=== PATIENT | male | born 1930 | race Caucasian/White ===

== ENCOUNTER 2018-12-13 14:05 | Inpatient (IN) | payer MEDICARE, BC ==
[2018-12-13 15:57] VITALS: BP 152/87
[2018-12-13] MEDS ORDERED: Maalox 30 mL Cup PO PRN (16:15)
[2018-12-13] MEDS ORDERED: Magnesium Hydroxide (MOM) 30 mL UDC PO PRN (16:15)
[2018-12-13] MEDS: Potassium Chloride 10 mEq ER Tab PO SCH (18:14)
[2018-12-13] MEDS ORDERED: PYRIDOXINE PO SCH (21:00)
[2018-12-13] MEDS ORDERED: MELATONIN PO SCH (21:00)
--- NOTE | 2018-12-14 01:57 | Psychiatric Evaluation ---
DATE OF SERVICE: 12/13/2018 JUSTIFICATION FOR HOSPITALIZATION: This is an 88-year-old male with a history of psychosis, on Seroquel admitted on a 5150 hold after worsening paranoia, thinking that his is trying to poison him. The patient has been agitated and stating "I do want to get rid of her." CHIEF COMPLAINT: "My is poisoning me." IDENTIFICATION: This is an 88-year-old male with a history of psychosis and insomnia, admitted to [facility] on a 5150 hold for severe worsening paranoia and agitation. HISTORY OF PRESENT ILLNESS: The patient presents to [facility] as a direct admission from [facility] in [place]. The patient presents on a 5150 hold after worsening symptoms of paranoia, thinking that his is poisoning him. The patient is currently on Seroquel, trazodone, doxepin and melatonin. The patient was visited at bedside this afternoon. The patient is very upset. He reports that his is trying to poison him. The patient is not able to state why his is trying to poison him, but persistently says that throughout the interview. The patient reports that he is very upset with his , stating "I feel like getting rid of my ." The patient has been repeatedly calling his , grandson and assistant district attorney using the phones stating "I will be going home tomorrow." The patient otherwise has a poor insight into his conditions. He does not know which medicines he is taking. He does not know anything about his medical history or his mental health history: The patient does report, "I need the tranquilizers to sleep." The patient reports that he does take medications, but he is not sure which medications. He reports that a platform operations director takes care of him at home. He reports "I fired her." The patient reports that he was previously and got and then got remarried to the same individual and he reports that he feels that his now is attempting to poison him and get rid of him. He is unable to state any facts in this regard stating "I know it sounds crazy and you are not going to believe me, but it is happening." He is unable to provide any further examples in this. He is very paranoid. He is very anxious. He appears to be very restless. He appears to be very depressed over his situation. In addition, he appears to be very distracted and disorganized and confused. PAST PSYCHIATRIC HISTORY: The patient is unable to provide any history; however, he is currently on Seroquel 25 mg in the morning and 150 mg at night, doxepin 50 mg at night, trazodone 50 mg at night and melatonin. The patient apparently has a history of psychosis and paranoia. PAST MEDICAL HISTORY: Pacemaker, hearing loss in right ear, legally blind, also please see H and P. ALLERGIES: No known drug allergies. SOCIAL HISTORY: The patient apparently is , living with his in [place], [place]. The patient reports that he is retired and he used to previously work in real estate. The patient does report he has children and he also has a grandson who he trusts. LEGAL HISTORY: Denies. ABUSE HISTORY: Denies. FAMILY HISTORY: Denies. SUBSTANCE USE HISTORY: The patient denies any tobacco, alcohol or illicit substance use. However, the patient does report a remote history of cannabis use. MENTAL STATUS EXAMINATION: The patient is an elderly male lying comfortably in the hospital bed. He appears restless at times. The patient's speech is loud. His mood and affect is worried and constricted and anxious. His thought processes at times concrete and at other times, disorganized. He denies any suicidal ideations, but he does make mention of wanting to "get rid of his in terms of homicidal ideations. The patient makes mention that he will do this through an assistant district attorney, but apparently made this threat of wanting to get rid of his repeatedly. The patient does appear to be internally preoccupied. He also does appear to be severely paranoid. He is alert and oriented to person and place. His insight, judgment and impulse control remain very poor. ASSESSMENT: This is an 88-year-old male admitted to [facility] on a 5150 hold. The patient has been becoming increasingly paranoid and agitated to the point where her family is unable to care for him. The patient has a history of psychosis, currently prescribed Seroquel, doxepin, trazodone and melatonin. The patient is amenable to restarting these medications. The patient denies any side effects to his medications. The patient at this time continues with severe paranoia, thought disorganization, poor self-care, high anxiety, poor impulse control and ongoing thoughts of wanting to "get rid of his ." PROVISIONAL DIAGNOSES: 1. Unspecified psychosis. 2. History of cannabis use. PLAN: We will accept 5150 hold and accept the patient to the acute hospitalization. We will restart the patient's home medications of Seroquel 25 mg in the morning and 150 mg at night, doxepin 50 mg at night, trazodone 50 mg at night and melatonin as needed. We will also consult Internal Medicine for medical evaluation. I will also encourage the patient to verbalize his needs and participate in group and milieu therapy. We will also contact family for collateral information. ESTIMATED LENGTH STAY: 5-7 days. STRENGTHS: The strengths include that the patient is financially comfortable and has family available. WEAKNESSES: The patient has ineffective coping, poor judgment and poor insight. AFTER DISCHARGE PLAN: The patient will be stabilized on his medications and be able to return home. CONDITION FOR DISCHARGE: The patient will be less paranoid. He will be less agitated, less anxious. He will be calm and cooperative and have a plan for self-care. [facility]# [id number]
[2018-12-14 08:26] LABS: CHOLESTEROL 178 mg/dL (<200); HDL -HIGH DENSITY LIPOPROTEIN 44 mg/dL (23-92); TRIGLYCERIDES 103 mg/dL (<150)
[2018-12-14] MEDS: Potassium Chloride 10 mEq ER Tab PO SCH ×2 (08:39→17:45)
[2018-12-14] MEDS: Aspirin 81mg Chewable Tab PO SCH (08:40)
[2018-12-14] MEDS: Multivitamin Tab PO SCH (08:41)
--- NOTE | 2018-12-14 08:59 | Diagnostic Imaging Report ---
Portable chest x-ray HISTORY: Cough, COPD The heart is enlarged. Atherosclerotic calcination seen in the aorta. Cardiac pacemaker lead wires project over the right atrium and right ventricle. There is elevation right hemidiaphragm. Pleural reaction noted about the right lung base. Accentuation of interstitial markings in the right and left lower lobe areas. No definite acute focal pulmonary processes. IMPRESSION: 1. Cardiomegaly with atherosclerotic vascular changes and pacemaker placement 2. Pleural parenchymal changes right lower hemithorax which appear chronic. However, clinical correlation is needed.
[2018-12-14] MEDS: Levothyroxine 0.112 Mg Tab PO SCH (10:26)
--- NOTE | 2018-12-14 13:59 | Psychiatric Evaluation ---
DATE OF SERVICE: 12/14/2018 IDENTIFYING INFORMATION: The patient is an 88-year-old male. CHIEF COMPLAINT: "I am tired of all these questions." HISTORY OF PRESENT ILLNESS: The patient was referred on a hold for danger to self, danger to others, grave disability. The patient to the hold was written on 12/12/2018. He was having episodes being combative. He was telling his family that he was hearing voices that they were trying to harm him and family members were in fear for their safety. The patient stated he could not remember the last time he ate. He also said he believed the year was 1920. His family, he believes trying to kill him and poison him. He was delusional and was confused on the date and months and multiple times he stated his family wanted to kill him. Unable to formulate safe plan for self-care. When I talked to him, he was very irritable and yelled at me and said I was tired of answering these questions and that he has been going from one Emergency Room to the other. He reported that he was born in 1918 and when in reality was born in [birth year]. Unable to make safe plan for self-care. I talked to his grandson and he did tell me he has not been sleeping. He can hardly recognize them. According to the information, he is not eating much. He has a home caregivers 24 hours a day; however, they have been unable to take care of him at home. PAST PSYCHIATRIC HISTORY: The patient seemed like he has already being given psychotropic medications for his dementia, combative behavior. Apparently, he is on doxepin 50 mg at bedtime and Seroquel 25 mg daily and 50 mg at bedtime. MEDICAL HISTORY: The patient has high blood pressure and hypothyroidism. FAMILY AND SOCIAL HISTORY: The patient apparently is , living with his , many children. Unable to tell me how many children. Unable to tell me what he did for living, how far did he go in school. Unable to tell if he uses any alcohol or drugs or any family psychotic disorder. MENTAL STATUS EXAMINATION: The patient is appropriately dressed, not well groomed. He looked disheveled. He has ____. He was very irritable with poor eye contact, started yelling at me when I asked him questions. Unable to participate in meaningful conversation. Obviously his vermin exterminator is poor and cannot remember his exact age or date of . Short term is poor, cannot remember events that led to his admission, but he realized he has been from one Emergency Room to the other. He would not answer any question regarding hallucination ____ he wants to harm himself or anyone, but he has been paranoid and believe his family is trying to kill him and poison him. He denies any intent to harm himself or he would not answer it. His insight about his illness is poor. Does not realize have problem. Judgment is poor with his behavior, combative, paranoid, delusional, and psychotic. IMPRESSION: Psychosis, not otherwise specified, dementia. PLAN: The patient will be taken off the doxepin because of its effect on him as this has a strong anticholinergic effect. Effect is also ability to pass urine and I will keep him on the Seroquel for now and I will add Remeron to help him sleep and appetite. I will try to get him to go to next facility. ESTIMATED LENGTH OF STAY: 3-7 days. DISCHARGE CRITERIA: No longer paranoid or delusional or depressed. After discharge, outpatient treatment. JOB# [id number]
--- NOTE | 2018-12-14 14:49 | History & Physical ---
ADMIT DATE: 12/13/2018 CHIEF COMPLAINT: Transferred for continued care and treatment, lynne. This is a request for medical evaluation. HISTORY OF PRESENT ILLNESS: This is an 88-year-old male with a history of hypertension, hypothyroidism, CHF, cardiac arrhythmia, status post pacemaker, dementia, borderline diabetes, admitted from home. Initially, sent to , looking good medically. The patient is a poor historian. Denies chest pain or shortness of breath. PAST MEDICAL HISTORY: As mentioned in the history of present illness. PAST SURGICAL HISTORY: Status pacemaker. ALLERGIES: SULFA. MEDICATIONS: Aspirin, doxepin, Lasix, Synthroid, losartan, without metoprolol, potassium, and Seroquel. FAMILY HISTORY: Noncontributory. SOCIAL HISTORY: The patient did smoke for 10 when he was younger. Drinks on occasion. No intravenous drug use. 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 with one child. REVIEW OF SYSTEMS: GENERAL: Complains not feeling well. HEENT: The patient with decreased hearing and legally blind. LUNGS: No diagnosis of COPD or asthma. HEART: The patient with hypertension, cardiac arrhythmia. ABDOMEN: No nausea, vomiting, pain. GENITOURINARY: The patient denies increased frequency or dysuria. NEUROLOGIC: No headache, seizure or syncope. PSYCHIATRIC: As stated above. PHYSICAL EXAMINATION: VITAL SIGNS: Blood pressure 141/83, respirations 20, pulse 94, temperature 99. GENERAL: Elderly male, appears chronically ill. NECK: Supple. LUNGS: Equal breath sounds, few rhonchi. HEART: Regular rate and rhythm. Systolic ejection murmur. ABDOMEN: Soft, globular. EXTREMITIES: Positive excoriations. Dry skin. LABORATORY DATA: Cholesterol 128, triglyceride 103. Previous labs from [facility], white count 8, hemoglobin 12, platelets 186. Sodium 142, potassium 4.3, BUN 29, creatinine 1.4, blood sugar 156. ASSESSMENT AND PLAN: Right hearing loss, status post pacemaker secondary to arrhythmia, legal blindness, hypertension with a recent history of congestive heart failure, dementia, diabetes, renal insufficiency, continue the patient on diuretics, monitor the patient's renal function closely. Continue angiotensin receptor iván. Continue Synthroid. Continue on aspirin. We will continue monitoring the patient closely. We will change the patient's diet to no concentrated sweets. Case was discussed with the grandson at bedside and also the grandson's spouse. JOB# [id number]
[2018-12-15 06:08] LABS: A1C 7.5 % (4.8-5.6)
[2018-12-15] MEDS: Potassium Chloride 10 mEq ER Tab PO SCH ×2 (08:31→16:09)
[2018-12-15] MEDS: Aspirin 81mg Chewable Tab PO SCH (08:31)
[2018-12-15] MEDS: Levothyroxine 0.112 Mg Tab PO SCH (08:31)
[2018-12-15] MEDS: Multivitamin Tab PO SCH (08:33)
[2018-12-15] MEDS ORDERED: Dextrose 50% 50 mL Abboject IVP PRN (12:30)
[2018-12-15] MEDS ORDERED: GLUCAGON HCl 1 MG KIT IM PRN (12:30)
--- NOTE | 2018-12-15 12:35 | Internal Medicine Prog Note ---
Internal Medicine Subjective - Subjective Patient seen and examined:: with staff, chart reviewed Patient is:: awake, verbal, interactive, denies any new complaints, confused Per staff patient has:: no adverse event, no episodes of fall, tolerating meds Internal Medicine Objective - Results Recent Labs: Laboratory Last Values Triglycerides 103 mg/dL (<150) 12/14/18 07:00 Cholesterol 178 mg/dL (<200) 12/14/18 07:00 LDL Cholesterol Direct 124 mg/dL (75-193) 12/14/18 07:00 HDL Cholesterol 44 mg/dL (23-92) 12/14/18 07:00 - Physical Exam Vitals and I&O: Vital Signs Temp 97.6 F 12/15/18 05:37 Pulse 98 12/15/18 08:33 Resp 18 12/15/18 08:00 BP 150/61 12/15/18 08:33 Pulse Ox 97 12/15/18 05:37 Intake & Output 12/14/18 12/15/18 12/15/18 18:59 06:59 18:59 Intake Total 900 240 Balance 900 240 Intake: Oral 900 240 Other: # Voids 4 2 # Bowel Movements 1 0 Active Medications: Current Medications Acetaminophen (Tylenol) 650 mg PO Q4HR PRN PRN Reason: Mild Pain / Temp above 100 Stop: 02/11/19 16:14 Al Hydrox/Mg Hydrox/Simethicone (Maalox) 30 ml PO Q4HR PRN PRN Reason: GI DISTRESS Stop: 02/11/19 16:14 Aspirin (Aspirin Chewable) 81 mg PO DAILY [facility] Stop: 02/12/19 08:59 Last Admin: 12/15/18 08:31 Dose: 81 mg Dextrose (D50w) 50 ml IVP PRN PRN PRN Reason: Blood Glucose less than 70 Stop: 02/13/19 12:29 Dextrose (Glutose 40%) 18.75 gm PO PRN PRN PRN Reason: Blood Glucose less than 70 Stop: 02/13/19 12:29 Donepezil HCl (Aricept) 5 mg PO HS [facility] Stop: 02/12/19 20:59 Last Admin: 12/14/18 21:31 Dose: 5 mg Furosemide (Lasix) 40 mg PO DAILY [facility] Stop: 02/12/19 08:59 Last Admin: 12/15/18 08:33 Dose: 40 mg Glucagon (Glucagen) 1 mg IM PRN PRN PRN Reason: Blood Glucose less than 70 Stop: 02/13/19 12:29 Insulin Human Lispro (Humalog Insulin Sliding Scale) 0 units SUBQ QAM [facility]; Protocol Stop: 02/14/19 08:59 Levothyroxine Sodium (Synthroid) 0.112 mg PO DAILY [facility] Stop: 02/12/19 08:59 Last Admin: 12/15/18 08:31 Dose: 0.112 mg Lorazepam (Ativan) 0.5 mg PO Q4HR PRN; Protocol PRN Reason: Anxiety Stop: 01/12/19 16:14 Last Admin: 12/15/18 08:31 Dose: 0.5 mg Losartan Potassium (Cozaar) 50 mg PO DAILY [facility] Stop: 02/12/19 08:59 Last Admin: 12/15/18 08:31 Dose: 50 mg Magnesium Hydroxide (Milk Of Magnesia) 30 ml PO HS PRN PRN Reason: Constipation Metoprolol Tartrate (Lopressor) 25 mg PO DAILY [facility] Stop: 02/12/19 08:59 Last Admin: 12/15/18 08:33 Dose: 25 mg Mirtazapine (Remeron) 7.5 mg PO HS [facility]; Protocol Stop: 02/12/19 20:59 Last Admin: 12/14/18 21:30 Dose: 7.5 mg Multivitamins/Vitamin C (Theragran) 1 tab PO DAILY [facility] Stop: 02/12/19 08:59 Last Admin: 12/15/18 08:33 Dose: 1 tab Potassium Chloride (Klor-Con) 20 meq PO BID [facility] Stop: 02/11/19 16:59 Last Admin: 12/15/18 08:31 Dose: 20 meq Quetiapine Fumarate (Seroquel) 50 mg PO HS [facility]; Protocol Stop: 02/11/19 20:59 Last Admin: 12/14/18 21:31 Dose: 50 mg Quetiapine Fumarate (Seroquel) 25 mg PO BID [facility]; Protocol Stop: 02/13/19 16:59 General: demented, disheveled, appears younger HEENT: NC/AT, PERRLA, EOMI, thinning hair Neck: Supple Lungs: CTAB Cardiovascular: RRR, Normal S1, Normal S2, with murmur Abdomen: soft, non-tender, globular, positive bowel sound Extremities: excoriation Neurological: no change Internal Medicine Assmt/Plan - Assessment Assessment: ASSESSMENT AND PLAN: Right hearing loss, 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 Continue angiotensin receptor iván. Continue Synthroid. Continue on aspirin. We will continue monitoring the patient closely. We will change the patient's diet to no concentrated sweets. Case was discussed with the grandson at bedside and also the grandson's spouse.
--- NOTE | 2018-12-16 00:34 | Progress Notes ---
DATE: SUBJECTIVE: Case was discussed with staff of the patient, reviewed records. Also discussed the care with his daughter yesterday. I called his at the number and her voicemail was not set up, so I could not talk to her and I discussed with her the medication changes that I was making for him. The patient continues to be agitated and has to be put on the observation yesterday as he was very aggressive, banging on the doors, very hard to redirect. Continues to be unpredictable, impulsive. He is demented, confused. He tolerated the Remeron with no side effects, no sedation, no nausea. He is also on the Seroquel 25 mg daily and 50 mg at bedtime. I will be increasing Seroquel dose to 25 mg twice a day. No side effects with the medication, no sedation, no nausea, no extrapyramidal symptoms and will continue outpatient group therapy, milieu therapy, adjust the medication as needed. JOB# [id number]
[2018-12-16] MEDS: Multivitamin Tab PO SCH (08:15)
[2018-12-16] MEDS: Potassium Chloride 10 mEq ER Tab PO SCH (08:15)
[2018-12-16] MEDS: Aspirin 81mg Chewable Tab PO SCH (08:19)
[2018-12-16] MEDS: Levothyroxine 0.112 Mg Tab PO SCH (08:27)
[2018-12-16] MEDS: INSULIN LISPRO SLIDING SCALE 100 UNITS/ML UNIT SUBQ SCH (09:14)
--- NOTE | 2018-12-16 12:13 | Internal Medicine Prog Note ---
Internal Medicine Subjective - Subjective Patient seen and examined:: with staff, chart reviewed Patient is:: awake, verbal, interactive, denies any new complaints, confused Per staff patient has:: no adverse event, no episodes of fall, tolerating meds Internal Medicine Objective - Results Recent Labs: Laboratory Last Values Triglycerides 103 mg/dL (<150) 12/14/18 07:00 Cholesterol 178 mg/dL (<200) 12/14/18 07:00 LDL Cholesterol Direct 124 mg/dL (75-193) 12/14/18 07:00 HDL Cholesterol 44 mg/dL (23-92) 12/14/18 07:00 - Physical Exam Vitals and I&O: Vital Signs Temp 97.2 F 12/16/18 05:45 Pulse 84 12/16/18 08:21 Resp 20 12/16/18 05:45 BP 135/75 12/16/18 08:21 Pulse Ox 94 12/16/18 05:45 Intake & Output 12/15/18 12/16/18 12/16/18 18:59 06:59 18:59 Intake Total 1200 300 Balance 1200 300 Intake: Oral 1200 300 Other: # Voids 2 1 # Bowel Movements 0 0 Active Medications: Current Medications Acetaminophen (Tylenol) 650 mg PO Q4HR PRN PRN Reason: Mild Pain / Temp above 100 Stop: 02/11/19 16:14 Last Admin: 12/16/18 09:49 Dose: 650 mg Al Hydrox/Mg Hydrox/Simethicone (Maalox) 30 ml PO Q4HR PRN PRN Reason: GI DISTRESS Stop: 02/11/19 16:14 Aspirin (Aspirin Chewable) 81 mg PO DAILY [facility] Stop: 02/12/19 08:59 Last Admin: 12/16/18 08:19 Dose: 81 mg Dextrose (D50w) 50 ml IVP PRN PRN PRN Reason: BS Below 70 & not tolerate po Stop: 02/13/19 12:29 Dextrose (Glutose 40%) 18.75 gm PO PRN PRN PRN Reason: BS Below 70 & tolerate po Stop: 02/13/19 12:29 Donepezil HCl (Aricept) 5 mg PO HS [facility] Stop: 02/12/19 20:59 Last Admin: 12/15/18 20:17 Dose: 5 mg Furosemide (Lasix) 40 mg PO DAILY [facility] Stop: 02/12/19 08:59 Last Admin: 12/16/18 08:20 Dose: 40 mg Glucagon (Glucagen) 1 mg IM PRN PRN PRN Reason: BS Below 70&dextrose ineffecti Stop: 02/13/19 12:29 Insulin Human Lispro (Humalog Insulin Sliding Scale) 0 units SUBQ QAM [facility]; Protocol Stop: 02/14/19 08:59 Last Admin: 12/16/18 09:14 Dose: Not Given Levothyroxine Sodium (Synthroid) 0.112 mg PO DAILY [facility] Stop: 02/12/19 08:59 Last Admin: 12/16/18 08:27 Dose: 0.112 mg Lorazepam (Ativan) 0.5 mg PO Q4HR PRN; Protocol PRN Reason: Anxiety Stop: 01/12/19 16:14 Last Admin: 12/16/18 09:50 Dose: 0.5 mg Losartan Potassium (Cozaar) 50 mg PO DAILY [facility] Stop: 02/12/19 08:59 Last Admin: 12/16/18 08:20 Dose: 50 mg Magnesium Hydroxide (Milk Of Magnesia) 30 ml PO HS PRN PRN Reason: Constipation Metoprolol Tartrate (Lopressor) 25 mg PO DAILY [facility] Stop: 02/12/19 08:59 Last Admin: 12/16/18 08:21 Dose: 25 mg Mirtazapine (Remeron) 7.5 mg PO HS [facility]; Protocol Stop: 02/12/19 20:59 Last Admin: 12/15/18 20:17 Dose: 7.5 mg Multivitamins/Vitamin C (Theragran) 1 tab PO DAILY [facility] Stop: 02/12/19 08:59 Last Admin: 12/16/18 08:15 Dose: 1 tab Potassium Chloride (Klor-Con) 20 meq PO BID [facility] Stop: 02/11/19 16:59 Quetiapine Fumarate (Seroquel) 50 mg PO HS [facility]; Protocol Stop: 02/11/19 20:59 Last Admin: 12/15/18 20:17 Dose: 50 mg Quetiapine Fumarate (Seroquel) 25 mg PO BID [facility]; Protocol Stop: 02/13/19 16:59 Last Admin: 12/16/18 08:15 Dose: 25 mg General: demented, disheveled, appears younger HEENT: NC/AT, PERRLA, EOMI, thinning hair Neck: Supple Lungs: CTAB Cardiovascular: RRR, Normal S1, Normal S2, with murmur Abdomen: soft, non-tender, globular, positive bowel sound Extremities: excoriation Neurological: no change Internal Medicine Assmt/Plan - Assessment Assessment: ASSESSMENT AND PLAN: Right hearing loss, 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 Continue angiotensin receptor iván. Continue Synthroid. Continue on aspirin. We will continue monitoring the patient closely. We will change the patient's diet to no concentrated sweets. Case was discussed with the grandson at bedside and also the grandson's spouse.
[2018-12-16] MEDS: Potassium Chloride 20 mEq ER Tab PO SCH (16:12)
--- NOTE | 2018-12-17 00:50 | Progress Notes ---
DATE: 12/16/2018 Case was discussed with staff of the patient, reviewed records. The patient continues to be very irritable, confused, continues to be unable to make safe plan for self-care or participate in a meaningful conversation, very easily agitated. He is compliant with the medication, no side effects, no sedation, no nausea, no extrapyramidal symptoms. Discussed the care with his family, working on finding a placement as they cannot take care of him. We will continue to work with the patient in group therapy, milieu therapy, and adjust the medications as needed. JOB# [id number]
[2018-12-17] MEDS: Potassium Chloride 20 mEq ER Tab PO SCH ×2 (08:25→16:41)
[2018-12-17] MEDS: Multivitamin Tab PO SCH (08:26)
[2018-12-17] MEDS: Aspirin 81mg Chewable Tab PO SCH (08:26)
[2018-12-17] MEDS: Levothyroxine 0.112 Mg Tab PO SCH (11:01)
[2018-12-17] MEDS: INSULIN LISPRO SLIDING SCALE 100 UNITS/ML UNIT SUBQ SCH (11:18)
--- NOTE | 2018-12-17 11:28 | Internal Medicine Prog Note ---
Internal Medicine Subjective - Subjective Patient seen and examined:: with staff, chart reviewed Patient is:: awake, verbal, interactive, denies any new complaints, confused Per staff patient has:: no adverse event, no episodes of fall, tolerating meds Internal Medicine Objective - Results Recent Labs: Laboratory Last Values Triglycerides 103 mg/dL (<150) 12/14/18 07:00 Cholesterol 178 mg/dL (<200) 12/14/18 07:00 LDL Cholesterol Direct 124 mg/dL (75-193) 12/14/18 07:00 HDL Cholesterol 44 mg/dL (23-92) 12/14/18 07:00 - Physical Exam Vitals and I&O: Vital Signs Temp 97.7 F 12/17/18 06:45 Pulse 95 12/17/18 08:26 Resp 19 12/17/18 06:45 BP 151/83 12/17/18 08:26 Pulse Ox 98 12/17/18 06:45 Intake & Output 12/16/18 12/17/18 12/17/18 18:59 06:59 18:59 Intake Total 120 Balance 120 Intake: Oral 120 Other: # Voids 2 3 # Bowel Movements 0 1 Active Medications: Current Medications Acetaminophen (Tylenol) 650 mg PO Q4HR PRN PRN Reason: Mild Pain / Temp above 100 Stop: 02/11/19 16:14 Last Admin: 12/16/18 09:49 Dose: 650 mg Al Hydrox/Mg Hydrox/Simethicone (Maalox) 30 ml PO Q4HR PRN PRN Reason: GI DISTRESS Stop: 02/11/19 16:14 Aspirin (Aspirin Chewable) 81 mg PO DAILY [facility] Stop: 02/12/19 08:59 Last Admin: 12/17/18 08:26 Dose: 81 mg Dextrose (D50w) 50 ml IVP PRN PRN PRN Reason: BS Below 70 & not tolerate po Stop: 02/13/19 12:29 Dextrose (Glutose 40%) 18.75 gm PO PRN PRN PRN Reason: BS Below 70 & tolerate po Stop: 02/13/19 12:29 Donepezil HCl (Aricept) 5 mg PO HS [facility] Stop: 02/12/19 20:59 Last Admin: 12/16/18 20:07 Dose: 5 mg Furosemide (Lasix) 40 mg PO DAILY [facility] Stop: 02/12/19 08:59 Last Admin: 12/17/18 08:25 Dose: 40 mg Glucagon (Glucagen) 1 mg IM PRN PRN PRN Reason: BS Below 70&dextrose ineffecti Stop: 02/13/19 12:29 Insulin Human Lispro (Humalog Insulin Sliding Scale) 0 units SUBQ QAM [facility]; Protocol Stop: 02/14/19 08:59 Last Admin: 12/17/18 11:18 Dose: Not Given Levothyroxine Sodium (Synthroid) 0.112 mg PO DAILY [facility] Stop: 02/12/19 08:59 Last Admin: 12/17/18 11:01 Dose: 0.112 mg Lorazepam (Ativan) 0.5 mg PO Q4HR PRN; Protocol PRN Reason: Anxiety Stop: 01/12/19 16:14 Last Admin: 12/16/18 22:08 Dose: 0.5 mg Losartan Potassium (Cozaar) 50 mg PO DAILY [facility] Stop: 02/12/19 08:59 Last Admin: 12/16/18 08:20 Dose: 50 mg Magnesium Hydroxide (Milk Of Magnesia) 30 ml PO HS PRN PRN Reason: Constipation Memantine (Namenda) 5 mg PO DAILY [facility] Stop: 02/16/19 08:59 Metoprolol Tartrate (Lopressor) 25 mg PO DAILY [facility] Stop: 02/12/19 08:59 Last Admin: 12/17/18 08:26 Dose: 25 mg Mirtazapine (Remeron) 7.5 mg PO HS [facility]; Protocol Stop: 02/12/19 20:59 Last Admin: 12/16/18 20:07 Dose: 7.5 mg Multivitamins/Vitamin C (Theragran) 1 tab PO DAILY [facility] Stop: 02/12/19 08:59 Last Admin: 12/17/18 08:26 Dose: 1 tab Potassium Chloride (Klor-Con) 20 meq PO BID [facility] Stop: 02/11/19 16:59 Last Admin: 12/17/18 08:25 Dose: 20 meq Quetiapine Fumarate (Seroquel) 25 mg PO BID [facility]; Protocol Stop: 02/13/19 16:59 Last Admin: 12/17/18 08:26 Dose: 25 mg Quetiapine Fumarate (Seroquel) 75 mg PO HS [facility]; Protocol Stop: 02/15/19 20:59 Zolpidem Tartrate (Ambien) 5 mg PO HS PRN PRN Reason: Insomnia Stop: 02/15/19 10:44 General: demented, disheveled, appears younger HEENT: NC/AT, PERRLA, EOMI, thinning hair Neck: Supple Lungs: CTAB Cardiovascular: RRR, Normal S1, Normal S2, with murmur Abdomen: soft, non-tender, globular, positive bowel sound Extremities: excoriation Neurological: no change Internal Medicine Assmt/Plan - Assessment Assessment: ASSESSMENT AND PLAN: Right hearing loss, 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 Continue angiotensin receptor iván. Continue Synthroid. Continue on aspirin. We will continue monitoring the patient closely. We will change the patient's diet to no concentrated sweets. Case was discussed with the grandson at bedside and also the grandson's spouse. Nutritional Asmnt/Malnutr-PDOC - Dietary Evaluation Malnutrition Findings (Please click <Entered> for more info): Nutritional Asmnt/Malnutrition Start: 12/16/18 13: 14 Text: Status: Complete Freq: Protocol: Document 12/16/18 13:14 GEE (Rec: 12/16/18 13:20 GEE [email or web address]) Nutritional Asmnt/Malnutrition Patient General Information Nutritional Screening Moderate Risk Diagnosis PSYCHOSIS NOS Pertinent Medical Hx/Surgical Hx HTN, HYPOTHYROIDISM, CHF, CARDIAC ARRYTHMIA, STATUS POST PACEMAKER, DEMENTIA, BORDERLINE DIABETES Subjective Information PT IS A 88 YEAR OLD MALE ADMITTED ON 12/13 FROM HOME ADMITTED D/T PSYCHOSIS NOS, PARANOIA. HT: 510 WT: 177 LB (80.45 KG) BMI: 22.86 (NORMAL) GI: WNL,FLAT, SOFT, NON-TENDER BM: 7/1 X 2 I/O: 1500/NOT NOTED SKIN: WNL, INTACT, DRYNESS TONIO: 21 DIET ORDER: CCHO, NCS ESTIMATED ENERGY NEEDS: ( GERIATRIC, CBW) 4419-2408 KCALS (25-30 KCALS/ KG) 80-97 G PRO (1.0-1.2 G/KG) 0635-9385 ML (25-30 ML/KG) PT IS IN A VERY CONFUSED STATE , BUT DOES EAT WELL PER RN. PT PO INTAKE: 80% MEALS X 3 DAYS , PER MEAL/NUTRITION ACTIVITY RECORD. DIETARY IS CURRENTLY PROVIDING AN ESTIMATED 2300 KCALS AND 125 GM PRO. PER PT PO INTAKE, THIS IS PROVIDING AN ESTIMATED 1840 KCALS AND 100 GM PRO, TO MEET 91% KCAL AND 100% PRO NEEDS ADEQUATE. Current Diet Order/ Nutrition Support [facility] Pertinent Medications MAALOX (PRN), D50W, GLUTOSE 40 % (PRN), LASIX, GLUCAGON (PRN) , INS-SS, SYNTHROID, MOM (PRN) , THEREGRAN, KLOR-COM Pertinent Labs NO UPDATED LABS 12/14 WNL Nutritional Hx/Data Height 1.78 m Height (Calculated Centimeters) 177.8 Current Weight (lbs) 80.286 kg Weight (Calculated Kilograms) 80.3 Weight (Calculated Grams) 75987.8 [place] Body Weight 166 % [place] Body Weight 107 Body Mass Index (BMI) 25.4 Weight Status Approriate GI Symptoms GI Symptoms None Last BM 12/14 X 2 Skin Integrity/Comment: WNL, INTACT, DRYNESS Current %PO Good (75-100%) Estimated Nutritional Goals BEE in Kcals: Using Current wt Calories/Kcals/Kg 25-30 Kcals Calculated Protein: Using Current wt Protein g/k.0-1.2 Protein Calculated 80-97 Fluid: ml 0753-4351 ML (25-30 ML/KG) Nutritional Problem No current Nutrition Prob Problem NO NUTRITION DIAGNOSIS AT THIS TIME. Etiology N/A Signs/Symptoms: N/A Malnutrition Related to Morbid Obesity Malnutrition related to morbid obesity No Intervention/Recommendation Comments [facility]. Expected Outcomes/Goals Expected Outcomes/Goals 1. PO INTAKE TO CONTINUE TO MEET > 75% OF NUTRITIONAL NEEDS. 2. MONITOR PO INTAKE, WT, NUTRITION RELATED LABS AND SKIN INTEGRITY. 3. F/U LOW RISK IN 7 DAYS, 12/23
--- NOTE | 2018-12-17 15:27 | Progress Notes ---
DATE: 12/17/2018 Case was discussed with staff of the patient, reviewed records. The patient has been paranoid. He believes somebody is trying to harm him. He has been isolating himself. He wanted to go to the isolation room, does not want to be with anyone in the room because of his paranoia. Continues to have poor insight. He sleeps well last night because of his paranoia. I will be increasing his Seroquel dose at bedtime to 75 mg at bedtime and so far no side effects of the medication, no sedation, no nausea, no extrapyramidal symptoms. I initiated him on Aricept 5 mg at bedtime 3 days ago and I will be initiating him also on Namenda to help improve his cognition and so far no side effects, no sedation, no nausea, no extrapyramidal symptoms. We will continue the patient in group therapy, milieu therapy, adjust the medication as needed. JOB# [id number] JD
[2018-12-18] MEDS: Potassium Chloride 20 mEq ER Tab PO SCH ×2 (08:47→16:18)
[2018-12-18] MEDS: Aspirin 81mg Chewable Tab PO SCH (08:48)
[2018-12-18] MEDS: Multivitamin Tab PO SCH (08:48)
[2018-12-18] MEDS: Levothyroxine 0.112 Mg Tab PO SCH (08:52)
[2018-12-18] MEDS: INSULIN LISPRO SLIDING SCALE 100 UNITS/ML UNIT SUBQ SCH (09:32)
--- NOTE | 2018-12-18 13:18 | Internal Medicine Prog Note ---
Internal Medicine Subjective - Subjective Patient seen and examined:: with staff, chart reviewed Patient is:: awake, verbal, interactive, denies any new complaints, confused Per staff patient has:: no adverse event, no episodes of fall, tolerating meds Internal Medicine Objective - Results Recent Labs: Laboratory Last Values Triglycerides 103 mg/dL (<150) 12/14/18 07:00 Cholesterol 178 mg/dL (<200) 12/14/18 07:00 LDL Cholesterol Direct 124 mg/dL (75-193) 12/14/18 07:00 HDL Cholesterol 44 mg/dL (23-92) 12/14/18 07:00 - Physical Exam Vitals and I&O: Vital Signs Temp 97.5 F 12/18/18 06:30 Pulse 82 12/18/18 08:47 Resp 20 12/18/18 06:30 BP 157/83 12/18/18 08:47 Pulse Ox 97 12/18/18 06:30 Intake & Output 12/17/18 12/18/18 12/18/18 18:59 06:59 18:59 Intake Total 900 120 Balance 900 120 Intake: Oral 900 120 Other: # Voids 3 3 # Bowel Movements 1 Stool Characteristics Soft Active Medications: Current Medications Acetaminophen (Tylenol) 650 mg PO Q4HR PRN PRN Reason: Mild Pain / Temp above 100 Stop: 02/11/19 16:14 Last Admin: 12/16/18 09:49 Dose: 650 mg Al Hydrox/Mg Hydrox/Simethicone (Maalox) 30 ml PO Q4HR PRN PRN Reason: GI DISTRESS Stop: 02/11/19 16:14 Aspirin (Aspirin Chewable) 81 mg PO DAILY [facility] Stop: 02/12/19 08:59 Last Admin: 12/18/18 08:48 Dose: 81 mg Dextrose (D50w) 50 ml IVP PRN PRN PRN Reason: BS Below 70 & not tolerate po Stop: 02/13/19 12:29 Dextrose (Glutose 40%) 18.75 gm PO PRN PRN PRN Reason: BS Below 70 & tolerate po Stop: 02/13/19 12:29 Donepezil HCl (Aricept) 5 mg PO HS [facility] Stop: 02/12/19 20:59 Last Admin: 12/17/18 20:37 Dose: 5 mg Furosemide (Lasix) 40 mg PO DAILY [facility] Stop: 02/12/19 08:59 Last Admin: 12/18/18 08:48 Dose: 40 mg Glucagon (Glucagen) 1 mg IM PRN PRN PRN Reason: BS Below 70&dextrose ineffecti Stop: 02/13/19 12:29 Insulin Human Lispro (Humalog Insulin Sliding Scale) 0 units SUBQ QAM [facility]; Protocol Stop: 02/14/19 08:59 Last Admin: 12/17/18 11:18 Dose: Not Given Levothyroxine Sodium (Synthroid) 0.112 mg PO DAILY [facility] Stop: 02/12/19 08:59 Last Admin: 12/18/18 08:52 Dose: 0.112 mg Lorazepam (Ativan) 0.5 mg PO Q4HR PRN; Protocol PRN Reason: Anxiety Stop: 01/12/19 16:14 Last Admin: 12/16/18 22:08 Dose: 0.5 mg Losartan Potassium (Cozaar) 50 mg PO DAILY [facility] Stop: 02/12/19 08:59 Last Admin: 12/18/18 08:47 Dose: 50 mg Magnesium Hydroxide (Milk Of Magnesia) 30 ml PO HS PRN PRN Reason: Constipation Memantine (Namenda) 5 mg PO DAILY [facility] Stop: 02/16/19 08:59 Last Admin: 12/18/18 08:46 Dose: 5 mg Metoprolol Tartrate (Lopressor) 25 mg PO DAILY [facility] Stop: 02/12/19 08:59 Last Admin: 12/18/18 08:47 Dose: 25 mg Mirtazapine (Remeron) 7.5 mg PO HS [facility]; Protocol Stop: 02/12/19 20:59 Last Admin: 12/17/18 20:38 Dose: 7.5 mg Multivitamins/Vitamin C (Theragran) 1 tab PO DAILY [facility] Stop: 02/12/19 08:59 Last Admin: 12/18/18 08:48 Dose: 1 tab Potassium Chloride (Klor-Con) 20 meq PO BID [facility] Stop: 02/11/19 16:59 Last Admin: 12/18/18 08:47 Dose: 20 meq Quetiapine Fumarate (Seroquel) 25 mg PO BID [facility]; Protocol Stop: 02/13/19 16:59 Last Admin: 12/18/18 08:48 Dose: 25 mg Quetiapine Fumarate (Seroquel) 75 mg PO HS [facility]; Protocol Stop: 02/15/19 20:59 Last Admin: 12/17/18 20:36 Dose: 75 mg Zolpidem Tartrate (Ambien) 5 mg PO HS PRN PRN Reason: Insomnia Stop: 02/15/19 10:44 Last Admin: 12/17/18 20:38 Dose: 5 mg General: demented, disheveled, appears younger HEENT: NC/AT, PERRLA, EOMI, thinning hair Neck: Supple Lungs: CTAB Cardiovascular: RRR, Normal S1, Normal S2, with murmur Abdomen: soft, non-tender, globular, positive bowel sound Extremities: excoriation Neurological: no change Internal Medicine Assmt/Plan - Assessment Assessment: ASSESSMENT AND PLAN: Right hearing loss, 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 Continue angiotensin receptor iván. Continue Synthroid. Continue on aspirin. We will continue monitoring the patient closely. We will change the patient's diet to no concentrated sweets. Case was discussed with the grandson at bedside and also the grandson's spouse. Nutritional Asmnt/Malnutr-PDOC - Dietary Evaluation Malnutrition Findings (Please click <Entered> for more info): Nutritional Asmnt/Malnutrition Start: 12/16/18 13: 14 Text: Status: Complete Freq: Protocol: Document 12/16/18 13:14 GEE (Rec: 12/16/18 13:20 GEE [email or web address]) Nutritional Asmnt/Malnutrition Patient General Information Nutritional Screening Moderate Risk Diagnosis PSYCHOSIS NOS Pertinent Medical Hx/Surgical Hx HTN, HYPOTHYROIDISM, CHF, CARDIAC ARRYTHMIA, STATUS POST PACEMAKER, DEMENTIA, BORDERLINE DIABETES Subjective Information PT IS A 88 YEAR OLD MALE ADMITTED ON 12/13 FROM HOME ADMITTED D/T PSYCHOSIS NOS, PARANOIA. HT: 510 WT: 177 LB (80.45 KG) BMI: 22.86 (NORMAL) GI: WNL,FLAT, SOFT, NON-TENDER BM: 7/1 X 2 I/O: 1500/NOT NOTED SKIN: WNL, INTACT, DRYNESS TONIO: 21 DIET ORDER: CCHO, NCS ESTIMATED ENERGY NEEDS: ( GERIATRIC, CBW) KCALS (25-30 KCALS/ KG) 80-97 G PRO (1.0-1.2 G/KG) 5150-9418 ML (25-30 ML/KG) PT IS IN A VERY CONFUSED STATE , BUT DOES EAT WELL PER RN. PT PO INTAKE: 80% MEALS X 3 DAYS , PER MEAL/NUTRITION ACTIVITY RECORD. DIETARY IS CURRENTLY PROVIDING AN ESTIMATED 2300 KCALS AND 125 GM PRO. PER PT PO INTAKE, THIS IS PROVIDING AN ESTIMATED 1840 KCALS AND 100 GM PRO, TO MEET 91% KCAL AND 100% PRO NEEDS ADEQUATE. Current Diet Order/ Nutrition Support [facility], [facility] Pertinent Medications MAALOX (PRN), D50W, GLUTOSE 40 % (PRN), LASIX, GLUCAGON (PRN) , INS-SS, SYNTHROID, MOM (PRN) , THEREGRAN, KLOR-COM Pertinent Labs NO UPDATED LABS 12/14 WNL Nutritional Hx/Data Height 1.78 m Height (Calculated Centimeters) 177.8 Current Weight (lbs) 80.286 kg Weight (Calculated Kilograms) 80.3 Weight (Calculated Grams) 38591.8 [place] Body Weight 166 % [place] Body Weight 107 Body Mass Index (BMI) 25.4 Weight Status Approriate GI Symptoms GI Symptoms None Last BM 12/14 X 2 Skin Integrity/Comment: WNL, INTACT, DRYNESS Current %PO Good (75-100%) Estimated Nutritional Goals BEE in Kcals: Using Current wt Calories/Kcals/Kg 25-30 Kcals Calculated Protein: Using Current wt Protein g/k.0-1.2 Protein Calculated 80-97 Fluid: ml 8101-1323 ML (25-30 ML/KG) Nutritional Problem No current Nutrition Prob Problem NO NUTRITION DIAGNOSIS AT THIS TIME. Etiology N/A Signs/Symptoms: N/A Malnutrition Related to Morbid Obesity Malnutrition related to morbid obesity No Intervention/Recommendation Comments [facility], [facility] DIET ORDERED. Expected Outcomes/Goals Expected Outcomes/Goals 1. PO INTAKE TO CONTINUE TO MEET > 75% OF NUTRITIONAL NEEDS. 2. MONITOR PO INTAKE, WT, NUTRITION RELATED LABS AND SKIN INTEGRITY. 3. F/U LOW RISK IN 7 DAYS, 12/23
--- NOTE | 2018-12-18 22:44 | Progress Notes ---
DATE: 12/18/2018 Case was discussed with staff of the patient, reviewed records. The patient continues to be demented, confused, unable to make safe plan for self-care, unpredictable, impulsive, needing redirection. He tolerated the increase in Seroquel yesterday with no side effects, no sedation, no nausea, no extrapyramidal symptoms. Also added Namenda to his medication to help improve his cognition. We will continue outpatient group therapy, milieu therapy, and adjust medication as needed. His lab work showed given lipid profile within normal range. I will continue outpatient group therapy, milieu therapy, and adjust medication as needed. JOB# [id number]
[2018-12-19] MEDS: Levothyroxine 0.112 Mg Tab PO SCH (06:32)
[2018-12-19] MEDS: INSULIN LISPRO SLIDING SCALE 100 UNITS/ML UNIT SUBQ SCH ×2 (06:42→09:09)
[2018-12-19] MEDS ORDERED: INSULIN LISPRO SLIDING SCALE 100 UNITS/ML UNIT SUBQ SCH (07:30)
[2018-12-19] MEDS: Potassium Chloride 20 mEq ER Tab PO SCH ×2 (08:08→17:11)
[2018-12-19] MEDS: Aspirin 81mg Chewable Tab PO SCH (08:09)
[2018-12-19] MEDS: Multivitamin Tab PO SCH (08:09)
--- NOTE | 2018-12-19 11:26 | Internal Medicine Prog Note ---
Internal Medicine Subjective - Subjective Patient seen and examined:: with staff, chart reviewed Patient is:: awake, verbal, interactive, denies any new complaints, confused Per staff patient has:: no adverse event, no episodes of fall, tolerating meds Internal Medicine Objective - Results Recent Labs: Laboratory Last Values Triglycerides 103 mg/dL (<150) 12/14/18 07:00 Cholesterol 178 mg/dL (<200) 12/14/18 07:00 LDL Cholesterol Direct 124 mg/dL (75-193) 12/14/18 07:00 HDL Cholesterol 44 mg/dL (23-92) 12/14/18 07:00 - Physical Exam Vitals and I&O: Vital Signs Temp 99.6 F 12/18/18 20:02 Pulse 76 12/19/18 08:10 Resp 20 12/18/18 20:02 BP 144/86 12/19/18 08:10 Pulse Ox 96 12/18/18 20:02 Intake & Output 12/18/18 12/19/18 12/19/18 18:59 06:59 18:59 Intake Total 1000 240 Balance 1000 240 Intake: Oral 1000 240 Other: # Voids 4 2 # Bowel Movements 1 Stool Characteristics Soft Active Medications: Current Medications Acetaminophen (Tylenol) 650 mg PO Q4HR PRN PRN Reason: Mild Pain / Temp above 100 Stop: 02/11/19 16:14 Last Admin: 12/16/18 09:49 Dose: 650 mg Al Hydrox/Mg Hydrox/Simethicone (Maalox) 30 ml PO Q4HR PRN PRN Reason: GI DISTRESS Stop: 02/11/19 16:14 Aspirin (Aspirin Chewable) 81 mg PO DAILY [facility] Stop: 02/12/19 08:59 Last Admin: 12/19/18 08:09 Dose: 81 mg Dextrose (D50w) 50 ml IVP PRN PRN PRN Reason: BS Below 70 & not tolerate po Stop: 02/13/19 12:29 Dextrose (Glutose 40%) 18.75 gm PO PRN PRN PRN Reason: BS Below 70 & tolerate po Stop: 02/13/19 12:29 Donepezil HCl (Aricept) 5 mg PO HS [facility] Stop: 02/12/19 20:59 Last Admin: 12/18/18 20:38 Dose: Not Given Furosemide (Lasix) 40 mg PO DAILY [facility] Stop: 02/12/19 08:59 Last Admin: 12/19/18 08:09 Dose: 40 mg Glucagon (Glucagen) 1 mg IM PRN PRN PRN Reason: BS Below 70&dextrose ineffecti Stop: 02/13/19 12:29 Insulin Human Lispro (Humalog Insulin Sliding Scale) 0 units SUBQ QAM [facility]; Protocol Stop: 02/17/19 07:29 Last Admin: 12/19/18 09:09 Dose: Not Given Levothyroxine Sodium (Synthroid) 0.112 mg PO QDAC [facility] Stop: 02/17/19 07:29 Last Admin: 12/19/18 06:32 Dose: 0.112 mg Lorazepam (Ativan) 0.5 mg PO Q4HR PRN; Protocol PRN Reason: Anxiety Stop: 01/12/19 16:14 Last Admin: 12/16/18 22:08 Dose: 0.5 mg Losartan Potassium (Cozaar) 50 mg PO DAILY [facility] Stop: 02/12/19 08:59 Last Admin: 12/19/18 08:09 Dose: 50 mg Magnesium Hydroxide (Milk Of Magnesia) 30 ml PO HS PRN PRN Reason: Constipation Memantine (Namenda) 5 mg PO DAILY [facility] Stop: 02/16/19 08:59 Last Admin: 12/19/18 08:09 Dose: 5 mg Metoprolol Tartrate (Lopressor) 25 mg PO DAILY [facility] Stop: 02/12/19 08:59 Last Admin: 12/19/18 08:10 Dose: 25 mg Mirtazapine (Remeron) 7.5 mg PO HS [facility]; Protocol Stop: 02/12/19 20:59 Last Admin: 12/18/18 20:38 Dose: Not Given Multivitamins/Vitamin C (Theragran) 1 tab PO DAILY [facility] Stop: 02/12/19 08:59 Last Admin: 12/19/18 08:09 Dose: 1 tab Potassium Chloride (Klor-Con) 20 meq PO BID [facility] Stop: 02/11/19 16:59 Last Admin: 12/19/18 08:08 Dose: 20 meq Quetiapine Fumarate (Seroquel) 25 mg PO BID [facility]; Protocol Stop: 02/13/19 16:59 Last Admin: 12/19/18 08:09 Dose: 25 mg Quetiapine Fumarate (Seroquel) 75 mg PO HS [facility]; Protocol Stop: 02/15/19 20:59 Last Admin: 12/18/18 20:37 Dose: Not Given Zolpidem Tartrate (Ambien) 5 mg PO HS PRN PRN Reason: Insomnia Stop: 02/15/19 10:44 Last Admin: 12/17/18 20:38 Dose: 5 mg General: demented, disheveled, appears younger HEENT: NC/AT, PERRLA, EOMI, thinning hair Neck: Supple Lungs: CTAB Cardiovascular: RRR, Normal S1, Normal S2, with murmur Abdomen: soft, non-tender, globular, positive bowel sound Extremities: excoriation Neurological: no change Internal Medicine Assmt/Plan - Assessment Assessment: ASSESSMENT AND PLAN: Right hearing loss, 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 Continue angiotensin receptor iván. Continue Synthroid. Continue on aspirin. We will continue monitoring the patient closely. We will change the patient's diet to no concentrated sweets. Case was discussed with the grandson at bedside and also the grandson's spouse. Nutritional Asmnt/Malnutr-PDOC - Dietary Evaluation Malnutrition Findings (Please click <Entered> for more info): Nutritional Asmnt/Malnutrition Start: 12/16/18 13: 14 Text: Status: Complete Freq: Protocol: Document 12/16/18 13:14 GEE (Rec: 12/16/18 13:20 GEE [email or web address]) Nutritional Asmnt/Malnutrition Patient General Information Nutritional Screening Moderate Risk Diagnosis PSYCHOSIS NOS Pertinent Medical Hx/Surgical Hx HTN, HYPOTHYROIDISM, CHF, CARDIAC ARRYTHMIA, STATUS POST PACEMAKER, DEMENTIA, BORDERLINE DIABETES Subjective Information PT IS A 88 YEAR OLD MALE ADMITTED ON 12/13 FROM HOME ADMITTED D/T PSYCHOSIS NOS, PARANOIA. HT: 510 WT: 177 LB (80.45 KG) BMI: 22.86 (NORMAL) GI: WNL,FLAT, SOFT, NON-TENDER BM: 7/1 X 2 I/O: 1500/NOT NOTED SKIN: WNL, INTACT, DRYNESS TONIO: 21 DIET ORDER: CCHO, NCS ESTIMATED ENERGY NEEDS: ( GERIATRIC, CBW) 4654-2694 KCALS (25-30 KCALS/ KG) 80-97 G PRO (1.0-1.2 G/KG) 7644-1191 ML (25-30 ML/KG) PT IS IN A VERY CONFUSED STATE , BUT DOES EAT WELL PER RN. PT PO INTAKE: 80% MEALS X 3 DAYS , PER MEAL/NUTRITION ACTIVITY RECORD. DIETARY IS CURRENTLY PROVIDING AN ESTIMATED 2300 KCALS AND 125 GM PRO. PER PT PO INTAKE, THIS IS PROVIDING AN ESTIMATED 1840 KCALS AND 100 GM PRO, TO MEET 91% KCAL AND 100% PRO NEEDS ADEQUATE. Current Diet Order/ Nutrition [facility] Pertinent Medications MAALOX (PRN), D50W, GLUTOSE 40 % (PRN), LASIX, GLUCAGON (PRN) , INS-SS, SYNTHROID, MOM (PRN) , THEREGRAN, KLOR-COM Pertinent Labs NO UPDATED LABS 12/14 WNL Nutritional Hx/Data Height 1.78 m Height (Calculated Centimeters) 177.8 Current Weight (lbs) 80.286 kg Weight (Calculated Kilograms) 80.3 Weight (Calculated Grams) 03976.8 [place] Body Weight 166 % [place] Body Weight 107 Body Mass Index (BMI) 25.4 Weight Status Approriate GI Symptoms GI Symptoms None Last BM 12/14 X 2 Skin Integrity/Comment: WNL, INTACT, DRYNESS Current %PO Good (75-100%) Estimated Nutritional Goals BEE in Kcals: Using Current wt Calories/Kcals/Kg 25-30 Kcals Calculated Protein: Using Current wt Protein g/k.0-1.2 Protein Calculated 80-97 Fluid: ml 8537-6585 ML (25-30 ML/KG) Nutritional Problem No current Nutrition Prob Problem NO NUTRITION DIAGNOSIS AT THIS TIME. Etiology N/A Signs/Symptoms: N/A Malnutrition Related to Morbid Obesity Malnutrition related to morbid obesity No Intervention/Recommendation Comments [facility], [facility] DIET ORDERED. Expected Outcomes/Goals Expected Outcomes/Goals 1. PO INTAKE TO CONTINUE TO MEET > 75% OF NUTRITIONAL NEEDS. 2. MONITOR PO INTAKE, WT, NUTRITION RELATED LABS AND SKIN INTEGRITY. 3. F/U LOW RISK IN 7 DAYS, 12/23
--- NOTE | 2018-12-19 21:38 | Progress Notes ---
DATE: 12/19/2018 SUBJECTIVE: Case was discussed with staff of the patient, reviewed records. Also, I discussed the care with his family, they seem to be very supportive. He continues to be confused, he forget that he took the medication and then he gets paranoid. He continues to have poor insight. He is less agitated, but still needing redirection a lot. He had very poor insight. He is compliant with the medication with no side effects, no sedation, no nausea, and no extrapyramidal symptoms. We will continue to work with the patient in group therapy, milieu therapy, and adjust the medications as needed. JOB# [id number]
[2018-12-20] MEDS: Levothyroxine 0.112 Mg Tab PO SCH (06:35)
[2018-12-20] MEDS: Multivitamin Tab PO SCH (08:30)
[2018-12-20] MEDS: Potassium Chloride 20 mEq ER Tab PO SCH ×2 (08:30→16:32)
[2018-12-20] MEDS: Aspirin 81mg Chewable Tab PO SCH (08:31)
[2018-12-20] MEDS: INSULIN LISPRO SLIDING SCALE 100 UNITS/ML UNIT SUBQ SCH (09:00)
--- NOTE | 2018-12-20 15:20 | Internal Medicine Prog Note ---
Internal Medicine Subjective - Subjective Patient seen and examined:: with staff, chart reviewed Patient is:: awake, verbal, interactive, denies any new complaints, confused Per staff patient has:: no adverse event, no episodes of fall, tolerating meds Internal Medicine Objective - Results Recent Labs: Laboratory Last Values Triglycerides 103 mg/dL (<150) 12/14/18 07:00 Cholesterol 178 mg/dL (<200) 12/14/18 07:00 LDL Cholesterol Direct 124 mg/dL (75-193) 12/14/18 07:00 HDL Cholesterol 44 mg/dL (23-92) 12/14/18 07:00 - Physical Exam Vitals and I&O: Vital Signs Temp 98.0 F 12/20/18 14:50 Pulse 84 12/20/18 14:50 Resp 20 12/20/18 14:50 BP 140/70 12/20/18 14:50 Pulse Ox 97 12/20/18 14:50 Intake & Output 12/19/18 12/20/18 12/20/18 18:59 06:59 18:59 Intake Total 1000 240 Balance 1000 240 Intake: Oral 1000 240 Other: # Voids 4 2 # Bowel Movements 1 0 Active Medications: Current Medications Acetaminophen (Tylenol) 650 mg PO Q4HR PRN PRN Reason: Mild Pain / Temp above 100 Stop: 02/11/19 16:14 Last Admin: 12/20/18 09:10 Dose: 650 mg Al Hydrox/Mg Hydrox/Simethicone (Maalox) 30 ml PO Q4HR PRN PRN Reason: GI DISTRESS Stop: 02/11/19 16:14 Aspirin (Aspirin Chewable) 81 mg PO DAILY [facility] Stop: 02/12/19 08:59 Last Admin: 12/20/18 08:31 Dose: 81 mg Dextrose (D50w) 50 ml IVP PRN PRN PRN Reason: BS Below 70 & not tolerate po Stop: 02/13/19 12:29 Dextrose (Glutose 40%) 18.75 gm PO PRN PRN PRN Reason: BS Below 70 & tolerate po Stop: 02/13/19 12:29 Donepezil HCl (Aricept) 5 mg PO HS [facility] Stop: 02/12/19 20:59 Last Admin: 12/19/18 21:14 Dose: 5 mg Furosemide (Lasix) 40 mg PO DAILY [facility] Stop: 02/12/19 08:59 Last Admin: 12/20/18 08:32 Dose: 40 mg Glucagon (Glucagen) 1 mg IM PRN PRN PRN Reason: BS Below 70&dextrose ineffecti Stop: 02/13/19 12:29 Insulin Human Lispro (Humalog Insulin Sliding Scale) 0 units SUBQ QAM [facility]; Protocol Stop: 02/17/19 07:29 Last Admin: 12/20/18 09:00 Dose: 2 units Levothyroxine Sodium (Synthroid) 0.112 mg PO QDAC [facility] Stop: 02/17/19 07:29 Last Admin: 12/20/18 06:35 Dose: 0.112 mg Lorazepam (Ativan) 0.5 mg PO Q4HR PRN; Protocol PRN Reason: Anxiety Stop: 01/12/19 16:14 Last Admin: 12/20/18 13:20 Dose: 0.5 mg Losartan Potassium (Cozaar) 50 mg PO DAILY [facility] Stop: 02/12/19 08:59 Last Admin: 12/20/18 08:30 Dose: 50 mg Magnesium Hydroxide (Milk Of Magnesia) 30 ml PO HS PRN PRN Reason: Constipation Memantine (Namenda) 5 mg PO DAILY [facility] Stop: 02/16/19 08:59 Last Admin: 12/20/18 08:30 Dose: 5 mg Metoprolol Tartrate (Lopressor) 25 mg PO DAILY [facility] Stop: 02/12/19 08:59 Last Admin: 12/20/18 08:32 Dose: 25 mg Mirtazapine (Remeron) 7.5 mg PO HS [facility]; Protocol Stop: 02/12/19 20:59 Last Admin: 12/19/18 21:15 Dose: 7.5 mg Multivitamins/Vitamin C (Theragran) 1 tab PO DAILY [facility] Stop: 02/12/19 08:59 Last Admin: 12/20/18 08:30 Dose: 1 tab Potassium Chloride (Klor-Con) 20 meq PO BID [facility] Stop: 02/11/19 16:59 Last Admin: 12/20/18 08:30 Dose: 20 meq Quetiapine Fumarate (Seroquel) 25 mg PO BID [facility]; Protocol Stop: 02/13/19 16:59 Last Admin: 12/20/18 08:30 Dose: 25 mg Quetiapine Fumarate (Seroquel) 75 mg PO HS [facility]; Protocol Stop: 02/15/19 20:59 Last Admin: 12/19/18 21:14 Dose: 75 mg Zolpidem Tartrate (Ambien) 5 mg PO HS PRN PRN Reason: Insomnia Stop: 02/15/19 10:44 Last Admin: 12/19/18 21:15 Dose: 5 mg General: demented, disheveled, appears younger HEENT: NC/AT, PERRLA, EOMI, thinning hair Neck: Supple Lungs: CTAB Cardiovascular: RRR, Normal S1, Normal S2, with murmur Abdomen: soft, non-tender, globular, positive bowel sound Extremities: excoriation Neurological: no change Internal Medicine Assmt/Plan - Assessment Assessment: ASSESSMENT AND PLAN: Right hearing loss, 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 Continue angiotensin receptor iván. Continue Synthroid. Continue on aspirin. We will continue monitoring the patient closely. We will change the patient's diet to no concentrated sweets. Case was discussed with the grandson at bedside and also the grandson's spouse. Nutritional Asmnt/Malnutr-PDOC - Dietary Evaluation Malnutrition Findings (Please click <Entered> for more info): Nutritional Asmnt/Malnutrition Start: 12/16/18 13: 14 Text: Status: Complete Freq: Protocol: Document 12/16/18 13:14 GEE (Rec: 12/16/18 13:20 GEE [email or web address]) Nutritional Asmnt/Malnutrition Patient General Information Nutritional Screening Moderate Risk Diagnosis PSYCHOSIS NOS Pertinent Medical Hx/Surgical Hx HTN, HYPOTHYROIDISM, CHF, CARDIAC ARRYTHMIA, STATUS POST PACEMAKER, DEMENTIA, BORDERLINE DIABETES Subjective Information PT IS A 88 YEAR OLD MALE ADMITTED ON 12/13 FROM HOME ADMITTED D/T PSYCHOSIS NOS, PARANOIA. HT: 510 WT: 177 LB (80.45 KG) BMI: 22.86 (NORMAL) GI: WNL,FLAT, SOFT, NON-TENDER BM: 7/1 X 2 I/O: 1500/NOT NOTED SKIN: WNL, INTACT, DRYNESS TONIO: 21 DIET ORDER: CCHO, NCS ESTIMATED ENERGY NEEDS: ( GERIATRIC, CBW) [id number] KCALS (25-30 KCALS/ KG) 80-97 G PRO (1.0-1.2 G/KG) 7292-4983 ML (25-30 ML/KG) PT IS IN A VERY CONFUSED STATE , BUT DOES EAT WELL PER RN. PT PO INTAKE: 80% MEALS X 3 DAYS , PER MEAL/NUTRITION ACTIVITY RECORD. DIETARY IS CURRENTLY PROVIDING AN ESTIMATED 2300 KCALS AND 125 GM PRO. PER PT PO INTAKE, THIS IS PROVIDING AN ESTIMATED 1840 KCALS AND 100 GM PRO, TO MEET 91% KCAL AND 100% PRO NEEDS ADEQUATE. Current Diet Order/ Nutrition Support [facility] Pertinent Medications MAALOX (PRN), D50W, GLUTOSE 40 % (PRN), LASIX, GLUCAGON (PRN) , INS-SS, SYNTHROID, MOM (PRN) , THEREGRAN, KLOR-COM Pertinent Labs NO UPDATED LABS 12/14 WNL Nutritional Hx/Data Height 1.78 m Height (Calculated Centimeters) 177.8 Current Weight (lbs) 80.286 kg Weight (Calculated Kilograms) 80.3 Weight (Calculated Grams) 69756.8 [place] Body Weight 166 % [place] Body Weight 107 Body Mass Index (BMI) 25.4 Weight Status Approriate GI Symptoms GI Symptoms None Last BM 12/14 X 2 Skin Integrity/Comment: WNL, INTACT, DRYNESS Current %PO Good (75-100%) Estimated Nutritional Goals BEE in Kcals: Using Current wt Calories/Kcals/Kg 25-30 Kcals Calculated Protein: Using Current wt Protein g/k.0-1.2 Protein Calculated 80-97 Fluid: ml 4991-5202 ML (25-30 ML/KG) Nutritional Problem No current Nutrition Prob Problem NO NUTRITION DIAGNOSIS AT THIS TIME. Etiology N/A Signs/Symptoms: N/A Malnutrition Related to Morbid Obesity Malnutrition related to morbid obesity No Intervention/Recommendation Comments CONTINUE WITH [facility], [facility] DIET ORDERED. Expected Outcomes/Goals Expected Outcomes/Goals 1. PO INTAKE TO CONTINUE TO MEET > 75% OF NUTRITIONAL NEEDS. 2. MONITOR PO INTAKE, WT, NUTRITION RELATED LABS AND SKIN INTEGRITY. 3. F/U LOW RISK IN 7 DAYS, 12/23
--- NOTE | 2018-12-20 23:37 | Progress Notes ---
DATE: 12/20/2018 SUBJECTIVE: Case was discussed with staff of the patient, reviewed records. The patient continues to be paranoid, confused, unable to make safe plan for self-care, forgetful, and easily agitated. He continues to have poor insight about the whole process. We are working on placement for this patient. Sleeping and eating is better, easier to redirect. No side effects with the medication, no sedation, no nausea, and no extrapyramidal symptoms. He is tolerating increase in Seroquel. We will continue to work with the patient in group therapy, milieu therapy, and adjust the medications as needed. JOB# [id number]
[2018-12-21] MEDS: Levothyroxine 0.112 Mg Tab PO SCH (06:12)
[2018-12-21] MEDS: Aspirin 81mg Chewable Tab PO SCH (08:50)
[2018-12-21] MEDS: Potassium Chloride 20 mEq ER Tab PO SCH ×2 (08:52→16:16)
[2018-12-21] MEDS: Multivitamin Tab PO SCH (08:53)
[2018-12-21] MEDS: INSULIN LISPRO SLIDING SCALE 100 UNITS/ML UNIT SUBQ SCH (09:00)
--- NOTE | 2018-12-21 12:06 | Internal Medicine Prog Note ---
Internal Medicine Subjective - Subjective Patient seen and examined:: with staff, chart reviewed Patient is:: awake, verbal, interactive, denies any new complaints, confused Per staff patient has:: no adverse event, no episodes of fall, tolerating meds Internal Medicine Objective - Results Recent Labs: Laboratory Last Values Triglycerides 103 mg/dL (<150) 12/14/18 07:00 Cholesterol 178 mg/dL (<200) 12/14/18 07:00 LDL Cholesterol Direct 124 mg/dL (75-193) 12/14/18 07:00 HDL Cholesterol 44 mg/dL (23-92) 12/14/18 07:00 - Physical Exam Vitals and I&O: Vital Signs Temp 97.0 F 12/21/18 06:00 Pulse 81 12/21/18 08:52 Resp 20 12/21/18 06:00 BP 143/84 12/21/18 08:52 Pulse Ox 97 12/21/18 06:00 Intake & Output 12/20/18 12/21/18 12/21/18 18:59 06:59 18:59 Intake Total 900 240 Balance 900 240 Intake: Oral 900 240 Other: # Voids 3 2 # Bowel Movements 1 Active Medications: Current Medications Acetaminophen (Tylenol) 650 mg PO Q4HR PRN PRN Reason: Mild Pain / Temp above 100 Stop: 02/11/19 16:14 Last Admin: 12/20/18 09:10 Dose: 650 mg Al Hydrox/Mg Hydrox/Simethicone (Maalox) 30 ml PO Q4HR PRN PRN Reason: GI DISTRESS Stop: 02/11/19 16:14 Aspirin (Aspirin Chewable) 81 mg PO DAILY [facility] Stop: 02/12/19 08:59 Last Admin: 12/21/18 08:50 Dose: 81 mg Dextrose (D50w) 50 ml IVP PRN PRN PRN Reason: BS Below 70 & not tolerate po Stop: 02/13/19 12:29 Dextrose (Glutose 40%) 18.75 gm PO PRN PRN PRN Reason: BS Below 70 & tolerate po Stop: 02/13/19 12:29 Donepezil HCl (Aricept) 5 mg PO HS [facility] Stop: 02/12/19 20:59 Last Admin: 12/20/18 20:33 Dose: 5 mg Furosemide (Lasix) 40 mg PO DAILY [facility] Stop: 02/12/19 08:59 Last Admin: 12/21/18 08:52 Dose: 40 mg Glucagon (Glucagen) 1 mg IM PRN PRN PRN Reason: BS Below 70&dextrose ineffecti Stop: 02/13/19 12:29 Insulin Human Lispro (Humalog Insulin Sliding Scale) 0 units SUBQ QAM [facility]; Protocol Stop: 02/17/19 07:29 Last Admin: 12/21/18 09:00 Dose: Not Given Levothyroxine Sodium (Synthroid) 0.112 mg PO QDAC [facility] Stop: 02/17/19 07:29 Last Admin: 12/21/18 06:12 Dose: 0.112 mg Lorazepam (Ativan) 0.5 mg PO Q4HR PRN; Protocol PRN Reason: Anxiety Stop: 01/12/19 16:14 Last Admin: 12/21/18 08:50 Dose: 0.5 mg Losartan Potassium (Cozaar) 50 mg PO DAILY [facility] Stop: 02/12/19 08:59 Last Admin: 12/21/18 08:51 Dose: 50 mg Magnesium Hydroxide (Milk Of Magnesia) 30 ml PO HS PRN PRN Reason: Constipation Memantine (Namenda) 5 mg PO DAILY [facility] Stop: 02/16/19 08:59 Last Admin: 12/21/18 08:50 Dose: 5 mg Metoprolol Tartrate (Lopressor) 25 mg PO DAILY [facility] Stop: 02/12/19 08:59 Last Admin: 12/21/18 08:52 Dose: 25 mg Mirtazapine (Remeron) 7.5 mg PO HS [facility]; Protocol Stop: 02/12/19 20:59 Last Admin: 12/20/18 20:33 Dose: 7.5 mg Multivitamins/Vitamin C (Theragran) 1 tab PO DAILY [facility] Stop: 02/12/19 08:59 Last Admin: 12/21/18 08:53 Dose: 1 tab Potassium Chloride (Klor-Con) 20 meq PO BID [facility] Stop: 02/11/19 16:59 Last Admin: 12/21/18 08:52 Dose: 20 meq Quetiapine Fumarate (Seroquel) 25 mg PO BID [facility]; Protocol Stop: 02/13/19 16:59 Last Admin: 12/21/18 08:52 Dose: 25 mg Quetiapine Fumarate (Seroquel) 75 mg PO HS [facility]; Protocol Stop: 02/15/19 20:59 Last Admin: 12/20/18 20:34 Dose: 75 mg Zolpidem Tartrate (Ambien) 5 mg PO HS PRN PRN Reason: Insomnia Stop: 02/15/19 10:44 Last Admin: 12/20/18 20:34 Dose: 5 mg General: demented, disheveled, appears younger HEENT: NC/AT, PERRLA, EOMI, thinning hair Neck: Supple Lungs: CTAB Cardiovascular: RRR, Normal S1, Normal S2, with murmur Abdomen: soft, non-tender, globular, positive bowel sound Extremities: excoriation Neurological: no change Internal Medicine Assmt/Plan - Assessment Assessment: ASSESSMENT AND PLAN: Right hearing loss, 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 Continue angiotensin receptor iván. Continue Synthroid. Continue on aspirin. We will continue monitoring the patient closely. We will change the patient's diet to no concentrated sweets. Case was discussed with the grandson at bedside and also the grandson's spouse. Nutritional Asmnt/Malnutr-PDOC - Dietary Evaluation Malnutrition Findings (Please click <Entered> for more info): Nutritional Asmnt/Malnutrition Start: 12/16/18 13: 14 Text: Status: Complete Freq: Protocol: Document 12/16/18 13:14 GEE (Rec: 12/16/18 13:20 GEE [email or web address]) Nutritional Asmnt/Malnutrition Patient General Information Nutritional Screening Moderate Risk Diagnosis PSYCHOSIS NOS Pertinent Medical Hx/Surgical Hx HTN, HYPOTHYROIDISM, CHF, CARDIAC ARRYTHMIA, STATUS POST PACEMAKER, DEMENTIA, BORDERLINE DIABETES Subjective Information PT IS A 88 YEAR OLD MALE ADMITTED ON 12/13 FROM HOME ADMITTED D/T PSYCHOSIS NOS, PARANOIA. HT: 510 WT: 177 LB (80.45 KG) BMI: 22.86 (NORMAL) GI: WNL,FLAT, SOFT, NON-TENDER BM: 7/1 X 2 I/O: 1500/NOT NOTED SKIN: WNL, INTACT, DRYNESS TONIO: 21 DIET ORDER: CCHO, NCS ESTIMATED ENERGY NEEDS: ( GERIATRIC, CBW) 3912-3432 KCALS (25-30 KCALS/ KG) 80-97 G PRO (1.0-1.2 G/KG) 4685-6454 ML (25-30 ML/KG) PT IS IN A VERY CONFUSED STATE , BUT DOES EAT WELL PER RN. PT PO INTAKE: 80% MEALS X 3 DAYS , PER MEAL/NUTRITION ACTIVITY RECORD. DIETARY IS CURRENTLY PROVIDING AN ESTIMATED 2300 KCALS AND 125 GM PRO. PER PT PO INTAKE, THIS IS PROVIDING AN ESTIMATED 1840 KCALS AND 100 GM PRO, TO MEET 91% KCAL AND 100% PRO NEEDS ADEQUATE. Current Diet Order/ Nutrition [facility] Pertinent Medications MAALOX (PRN), D50W, GLUTOSE 40 % (PRN), LASIX, GLUCAGON (PRN) , INS-SS, SYNTHROID, MOM (PRN) , THEREGRAN, KLOR-COM Pertinent Labs NO UPDATED LABS 12/14 WNL Nutritional Hx/Data Height 1.78 m Height (Calculated Centimeters) 177.8 Current Weight (lbs) 80.286 kg Weight (Calculated Kilograms) 80.3 Weight (Calculated Grams) 57093.8 [place] Body Weight 166 % [place] Body Weight 107 Body Mass Index (BMI) 25.4 Weight Status Approriate GI Symptoms GI Symptoms None Last BM 12/14 X 2 Skin Integrity/Comment: WNL, INTACT, DRYNESS Current %PO Good (75-100%) Estimated Nutritional Goals BEE in Kcals: Using Current wt Calories/Kcals/Kg 25-30 Kcals Calculated Protein: Using Current wt Protein g/k.0-1.2 Protein Calculated 80-97 Fluid: ml 3050-4319 ML (25-30 ML/KG) Nutritional Problem No current Nutrition Prob Problem NO NUTRITION DIAGNOSIS AT THIS TIME. Etiology N/A Signs/Symptoms: N/A Malnutrition Related to Morbid Obesity Malnutrition related to morbid obesity No Intervention/Recommendation Comments [facility] DIET ORDERED. Expected Outcomes/Goals Expected Outcomes/Goals 1. PO INTAKE TO CONTINUE TO MEET > 75% OF NUTRITIONAL NEEDS. 2. MONITOR PO INTAKE, WT, NUTRITION RELATED LABS AND SKIN INTEGRITY. 3. F/U LOW RISK IN 7 DAYS, 12/23
--- NOTE | 2018-12-21 20:39 | Progress Notes ---
DATE: 12/21/2018 Case was discussed with staff of the patient, reviewed treatment plan and goals, the patient's agreement. The patient is working on coping skills, relationship issues. He is sleeping well, eating well. The patient continues to be confused. Continues to be paranoid. Continues to be unpredictable, impulsive, needing redirection. Continues to have poor insight in general. I initiated him also on Namenda a few days ago with no side effects, no sedation, no nausea and no extrapyramidal symptoms. We will continue outpatient group therapy, milieu therapy, and the adjust medication as needed. JOB# [id number]
[2018-12-22] MEDS: Levothyroxine 0.112 Mg Tab PO SCH (06:41)
[2018-12-22] MEDS: Multivitamin Tab PO SCH (08:42)
[2018-12-22] MEDS: Aspirin 81mg Chewable Tab PO SCH (08:43)
[2018-12-22] MEDS: Potassium Chloride 20 mEq ER Tab PO SCH ×2 (08:43→17:35)
[2018-12-22] MEDS: INSULIN LISPRO SLIDING SCALE 100 UNITS/ML UNIT SUBQ SCH (08:44)
--- NOTE | 2018-12-22 12:28 | Internal Medicine Prog Note ---
Internal Medicine Subjective - Subjective Patient seen and examined:: with staff, chart reviewed Patient is:: awake, verbal, interactive, denies any new complaints, confused Per staff patient has:: no adverse event, no episodes of fall, tolerating meds Internal Medicine Objective - Results Recent Labs: Laboratory Last Values Triglycerides 103 mg/dL (<150) 12/14/18 07:00 Cholesterol 178 mg/dL (<200) 12/14/18 07:00 LDL Cholesterol Direct 124 mg/dL (75-193) 12/14/18 07:00 HDL Cholesterol 44 mg/dL (23-92) 12/14/18 07:00 - Physical Exam Vitals and I&O: Vital Signs Temp 97.5 F 12/22/18 05:58 Pulse 70 12/22/18 08:44 Resp 20 12/22/18 05:58 BP 133/85 12/22/18 08:44 Pulse Ox 93 12/22/18 05:58 Intake & Output 12/21/18 12/22/18 12/22/18 18:59 06:59 18:59 Intake Total 1400 240 Balance 1400 240 Intake: Oral 1400 240 Other: # Voids 4 2 # Bowel Movements 1 Active Medications: Current Medications Acetaminophen (Tylenol) 650 mg PO Q4HR PRN PRN Reason: Mild Pain / Temp above 100 Stop: 02/11/19 16:14 Last Admin: 12/20/18 09:10 Dose: 650 mg Al Hydrox/Mg Hydrox/Simethicone (Maalox) 30 ml PO Q4HR PRN PRN Reason: GI DISTRESS Stop: 02/11/19 16:14 Aspirin (Aspirin Chewable) 81 mg PO DAILY [facility] Stop: 02/12/19 08:59 Last Admin: 12/22/18 08:43 Dose: 81 mg Dextrose (D50w) 50 ml IVP PRN PRN PRN Reason: BS Below 70 & not tolerate po Stop: 02/13/19 12:29 Dextrose (Glutose 40%) 18.75 gm PO PRN PRN PRN Reason: BS Below 70 & tolerate po Stop: 02/13/19 12:29 Donepezil HCl (Aricept) 5 mg PO HS [facility] Stop: 02/12/19 20:59 Last Admin: 12/21/18 20:10 Dose: 5 mg Furosemide (Lasix) 40 mg PO DAILY [facility] Stop: 02/12/19 08:59 Last Admin: 12/22/18 08:42 Dose: 40 mg Glucagon (Glucagen) 1 mg IM PRN PRN PRN Reason: BS Below 70&dextrose ineffecti Stop: 02/13/19 12:29 Insulin Human Lispro (Humalog Insulin Sliding Scale) 0 units SUBQ QAM [facility]; Protocol Stop: 02/17/19 07:29 Last Admin: 12/22/18 08:44 Dose: Not Given Levothyroxine Sodium (Synthroid) 0.112 mg PO QDAC [facility] Stop: 02/17/19 07:29 Last Admin: 12/22/18 06:41 Dose: 0.112 mg Lorazepam (Ativan) 0.5 mg PO Q4HR PRN; Protocol PRN Reason: Anxiety Stop: 01/12/19 16:14 Last Admin: 12/21/18 21:55 Dose: 0.5 mg Losartan Potassium (Cozaar) 50 mg PO DAILY [facility] Stop: 02/12/19 08:59 Last Admin: 12/22/18 08:43 Dose: 50 mg Magnesium Hydroxide (Milk Of Magnesia) 30 ml PO HS PRN PRN Reason: Constipation Memantine (Namenda) 5 mg PO DAILY [facility] Stop: 02/16/19 08:59 Last Admin: 12/22/18 08:43 Dose: 5 mg Metoprolol Tartrate (Lopressor) 25 mg PO DAILY [facility] Stop: 02/12/19 08:59 Last Admin: 12/22/18 08:44 Dose: 25 mg Mirtazapine (Remeron) 7.5 mg PO HS [facility]; Protocol Stop: 02/12/19 20:59 Last Admin: 12/21/18 20:10 Dose: 7.5 mg Multivitamins/Vitamin C (Theragran) 1 tab PO DAILY [facility] Stop: 02/12/19 08:59 Last Admin: 12/22/18 08:42 Dose: 1 tab Potassium Chloride (Klor-Con) 20 meq PO BID [facility] Stop: 02/11/19 16:59 Last Admin: 12/22/18 08:43 Dose: 20 meq Quetiapine Fumarate (Seroquel) 25 mg PO BID [facility]; Protocol Stop: 02/13/19 16:59 Last Admin: 12/22/18 08:44 Dose: 25 mg Quetiapine Fumarate 25 mg/ (Quetiapine Fumarate 50 mg) 75 mg PO HS [facility] Stop: 02/19/19 20:59 Last Admin: 12/21/18 20:10 Dose: 75 mg Zolpidem Tartrate (Ambien) 5 mg PO HS PRN PRN Reason: Insomnia Stop: 02/15/19 10:44 Last Admin: 12/21/18 21:16 Dose: 5 mg General: demented, disheveled, appears younger HEENT: NC/AT, PERRLA, EOMI, thinning hair Neck: Supple Lungs: CTAB Cardiovascular: RRR, Normal S1, Normal S2, with murmur Abdomen: soft, non-tender, globular, positive bowel sound Extremities: excoriation Neurological: no change Internal Medicine Assmt/Plan - Assessment Assessment: ASSESSMENT AND PLAN: Right hearing loss, 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 Continue angiotensin receptor iván. Continue Synthroid. Continue on aspirin. We will continue monitoring the patient closely. We will change the patient's diet to no concentrated sweets. Case was discussed with the grandson at bedside and also the grandson's spouse. Nutritional Asmnt/Malnutr-PDOC - Dietary Evaluation Malnutrition Findings (Please click <Entered> for more info): Nutritional Asmnt/Malnutrition Start: 12/16/18 13: 14 Text: Status: Complete Freq: Protocol: Document 12/16/18 13:14 GEE (Rec: 12/16/18 13:20 GEE [email or web address]) Nutritional Asmnt/Malnutrition Patient General Information Nutritional Screening Moderate Risk Diagnosis PSYCHOSIS NOS Pertinent Medical Hx/Surgical Hx HTN, HYPOTHYROIDISM, CHF, CARDIAC ARRYTHMIA, STATUS POST PACEMAKER, DEMENTIA, BORDERLINE DIABETES Subjective Information PT IS A 88 YEAR OLD MALE ADMITTED ON 12/13 FROM HOME ADMITTED D/T PSYCHOSIS NOS, PARANOIA. HT: 510 WT: 177 LB (80.45 KG) BMI: 22.86 (NORMAL) GI: WNL,FLAT, SOFT, NON-TENDER BM: 7/1 X 2 I/O: 1500/NOT NOTED SKIN: WNL, INTACT, DRYNESS TONIO: 21 DIET ORDER: CCHO, NCS ESTIMATED ENERGY NEEDS: ( GERIATRIC, CBW) KCALS (25-30 KCALS/ KG) 80-97 G PRO (1.0-1.2 G/KG) 1848-9243 ML (25-30 ML/KG) PT IS IN A VERY CONFUSED STATE , BUT DOES EAT WELL PER RN. PT PO INTAKE: 80% MEALS X 3 DAYS , PER MEAL/NUTRITION ACTIVITY RECORD. DIETARY IS CURRENTLY PROVIDING AN ESTIMATED 2300 KCALS AND 125 GM PRO. PER PT PO INTAKE, THIS IS PROVIDING AN ESTIMATED 1840 KCALS AND 100 GM PRO, TO MEET 91% KCAL AND 100% PRO NEEDS ADEQUATE. Current Diet Order/ Nutrition Support [facility] Pertinent Medications MAALOX (PRN), D50W, GLUTOSE 40 % (PRN), LASIX, GLUCAGON (PRN) , INS-SS, SYNTHROID, MOM (PRN) , THEREGRAN, KLOR-COM Pertinent Labs NO UPDATED LABS 12/14 WNL Nutritional Hx/Data Height 1.78 m Height (Calculated Centimeters) 177.8 Current Weight (lbs) 80.286 kg Weight (Calculated Kilograms) 80.3 Weight (Calculated Grams) 16902.8 [place] Body Weight 166 % [place] Body Weight 107 Body Mass Index (BMI) 25.4 Weight Status Approriate GI Symptoms GI Symptoms None Last BM 12/14 X 2 Skin Integrity/Comment: WNL, INTACT, DRYNESS Current %PO Good (75-100%) Estimated Nutritional Goals BEE in Kcals: Using Current wt Calories/Kcals/Kg 25-30 Kcals Calculated Protein: Using Current wt Protein g/k.0-1.2 Protein Calculated 80-97 Fluid: ml 4963-4175 ML (25-30 ML/KG) Nutritional Problem No current Nutrition Prob Problem NO NUTRITION DIAGNOSIS AT THIS TIME. Etiology N/A Signs/Symptoms: N/A Malnutrition Related to Morbid Obesity Malnutrition related to morbid obesity No Intervention/Recommendation Comments CONTINUE WITH [facility] DIET ORDERED. Expected Outcomes/Goals Expected Outcomes/Goals 1. PO INTAKE TO CONTINUE TO MEET > 75% OF NUTRITIONAL NEEDS. 2. MONITOR PO INTAKE, WT, NUTRITION RELATED LABS AND SKIN INTEGRITY. 3. F/U LOW RISK IN 7 DAYS, 12/23
--- NOTE | 2018-12-23 01:22 | Progress Notes ---
DATE: 12/22/2018 Case was discussed with staff of the patient, reviewed records. The patient continues to be unpredictable, confused, unable to make safe plan for self-care. Continues to have poor insight, easily agitated. He is concerned about his physical well-being and not get the medical doctor to evaluate him. He is tolerating the adding of the Namenda with no side effects, no sedation or nausea, no extrapyramidal symptoms. She tolerated the increase in Seroquel to 25 mg twice a day and 75 mg at bedtime and that was done yesterday. We will continue to work with the patient in group therapy, milieu therapy and adjust the medications as needed. JOB# [id number]
[2018-12-23] MEDS: Levothyroxine 0.112 Mg Tab PO SCH (06:40)
[2018-12-23] MEDS: Multivitamin Tab PO SCH (08:38)
[2018-12-23] MEDS: Aspirin 81mg Chewable Tab PO SCH (08:39)
[2018-12-23] MEDS: Potassium Chloride 20 mEq ER Tab PO SCH ×2 (08:40→16:29)
[2018-12-23] MEDS: INSULIN LISPRO SLIDING SCALE 100 UNITS/ML UNIT SUBQ SCH (10:29)
--- NOTE | 2018-12-23 12:55 | Internal Medicine Prog Note ---
Internal Medicine Subjective - Subjective Patient seen and examined:: with staff, chart reviewed Patient is:: awake, verbal, interactive, denies any new complaints, confused Per staff patient has:: no adverse event, no episodes of fall, tolerating meds Internal Medicine Objective - Results Recent Labs: Laboratory Last Values Triglycerides 103 mg/dL (<150) 12/14/18 07:00 Cholesterol 178 mg/dL (<200) 12/14/18 07:00 LDL Cholesterol Direct 124 mg/dL (75-193) 12/14/18 07:00 HDL Cholesterol 44 mg/dL (23-92) 12/14/18 07:00 - Physical Exam Vitals and I&O: Vital Signs Temp 98.3 F 12/23/18 06:37 Pulse 84 12/23/18 08:39 Resp 18 12/23/18 08:00 BP 127/76 12/23/18 08:39 Pulse Ox 98 12/23/18 06:37 Intake & Output 12/22/18 12/23/18 12/23/18 18:59 06:59 18:59 Intake Total 120 Balance 120 Intake: Oral 120 Other: # Voids 2 1 # Bowel Movements 0 0 Active Medications: Current Medications Acetaminophen (Tylenol) 650 mg PO Q4HR PRN PRN Reason: Mild Pain / Temp above 100 Stop: 02/11/19 16:14 Last Admin: 12/20/18 09:10 Dose: 650 mg Al Hydrox/Mg Hydrox/Simethicone (Maalox) 30 ml PO Q4HR PRN PRN Reason: GI DISTRESS Stop: 02/11/19 16:14 Aspirin (Aspirin Chewable) 81 mg PO DAILY [facility] Stop: 02/12/19 08:59 Last Admin: 12/23/18 08:39 Dose: 81 mg Dextrose (D50w) 50 ml IVP PRN PRN PRN Reason: BS Below 70 & not tolerate po Stop: 02/13/19 12:29 Dextrose (Glutose 40%) 18.75 gm PO PRN PRN PRN Reason: BS Below 70 & tolerate po Stop: 02/13/19 12:29 Donepezil HCl (Aricept) 5 mg PO HS GEORGIE Stop: 02/12/19 20:59 Last Admin: 12/22/18 20:44 Dose: 5 mg Furosemide (Lasix) 40 mg PO DAILY GE[facility]IE Stop: 02/12/19 08:59 Last Admin: 12/23/18 08:38 Dose: 40 mg Glucagon (Glucagen) 1 mg IM PRN PRN PRN Reason: BS Below 70&dextrose ineffecti Stop: 02/13/19 12:29 Insulin Human Lispro (Humalog Insulin Sliding Scale) 0 units SUBQ QAM [facility]; Protocol Stop: 02/17/19 07:29 Last Admin: 12/23/18 10:29 Dose: Not Given Levothyroxine Sodium (Synthroid) 0.112 mg PO QDAC GE[facility]GIE Stop: 02/17/19 07:29 Last Admin: 12/23/18 06:40 Dose: 0.112 mg Lorazepam (Ativan) 0.5 mg PO Q4HR PRN; Protocol PRN Reason: Anxiety Stop: 01/12/19 16:14 Last Admin: 12/22/18 20:44 Dose: 0.5 mg Losartan Potassium (Cozaar) 50 mg PO DAILY GE[facility]IE Stop: 02/12/19 08:59 Last Admin: 12/23/18 08:39 Dose: 50 mg Magnesium Hydroxide (Milk Of Magnesia) 30 ml PO HS PRN PRN Reason: Constipation Memantine (Namenda) 5 mg PO DAILY GE[facility]IE Stop: 02/16/19 08:59 Last Admin: 12/23/18 08:38 Dose: 5 mg Metoprolol Tartrate (Lopressor) 25 mg PO DAILY [facility]IE Stop: 02/12/19 08:59 Last Admin: 12/23/18 08:39 Dose: 25 mg Mirtazapine (Remeron) 7.5 mg PO HS GE[facility]GIE; Protocol Stop: 02/12/19 20:59 Last Admin: 12/22/18 20:43 Dose: 7.5 mg Multivitamins/Vitamin C (Theragran) 1 tab PO DAILY GE[facility]IE Stop: 02/12/19 08:59 Last Admin: 12/23/18 08:38 Dose: 1 tab Potassium Chloride (Klor-Con) 20 meq PO BID GE[facility]IE Stop: 02/11/19 16:59 Last Admin: 12/23/18 08:40 Dose: 20 meq Quetiapine Fumarate (Seroquel) 25 mg PO BID [facility]; Protocol Stop: 02/13/19 16:59 Last Admin: 12/23/18 08:38 Dose: 25 mg Quetiapine Fumarate (Seroquel) 100 mg PO HS GE[facility]IE Stop: 02/21/19 20:59 Zolpidem Tartrate (Ambien) 5 mg PO HS PRN PRN Reason: Insomnia Stop: 02/15/19 10:44 Last Admin: 12/22/18 21:46 Dose: 5 mg General: demented, disheveled, appears younger HEENT: NC/AT, PERRLA, EOMI, thinning hair Neck: Supple Lungs: CTAB Cardiovascular: RRR, Normal S1, Normal S2, with murmur Abdomen: soft, non-tender, globular, positive bowel sound Extremities: excoriation Neurological: no change Internal Medicine Assmt/Plan - Assessment Assessment: ASSESSMENT AND PLAN: Right hearing loss, 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 Continue angiotensin receptor iván. Continue Synthroid. Continue on aspirin. We will continue monitoring the patient closely. We will change the patient's diet to no concentrated sweets. Case was discussed with the grandson at bedside and also the grandson's spouse. Nutritional Asmnt/Malnutr-PDOC - Dietary Evaluation Malnutrition Findings (Please click <Entered> for more info): Nutritional Asmnt/Malnutrition Start: 12/16/18 13: 14 Text: Status: Complete Freq: Protocol: Document 12/16/18 13:14 GEE (Rec: 12/16/18 13:20 GEE [email or web address]) Nutritional Asmnt/Malnutrition Patient General Information Nutritional Screening Moderate Risk Diagnosis PSYCHOSIS NOS Pertinent Medical Hx/Surgical Hx HTN, HYPOTHYROIDISM, CHF, CARDIAC ARRYTHMIA, STATUS POST PACEMAKER, DEMENTIA, BORDERLINE DIABETES Subjective Information PT IS A 88 YEAR OLD MALE ADMITTED ON 12/13 FROM HOME ADMITTED D/T PSYCHOSIS NOS, PARANOIA. HT: 510 WT: 177 LB (80.45 KG) BMI: 22.86 (NORMAL) GI: WNL,FLAT, SOFT, NON-TENDER BM: 7/1 X 2 I/O: 1500/NOT NOTED SKIN: WNL, INTACT, DRYNESS TONIO: 21 DIET ORDER: CCHO, NCS ESTIMATED ENERGY NEEDS: ( GERIATRIC, CBW) 0566-5777 KCALS (25-30 KCALS/ KG) 80-97 G PRO (1.0-1.2 G/KG) 8329-7705 ML (25-30 ML/KG) PT IS IN A VERY CONFUSED STATE , BUT DOES EAT WELL PER RN. PT PO INTAKE: 80% MEALS X 3 DAYS , PER MEAL/NUTRITION ACTIVITY RECORD. DIETARY IS CURRENTLY PROVIDING AN ESTIMATED 2300 KCALS AND 125 GM PRO. PER PT PO INTAKE, THIS IS PROVIDING AN ESTIMATED 1840 KCALS AND 100 GM PRO, TO MEET 91% KCAL AND 100% PRO NEEDS ADEQUATE. Current Diet Order/ Nutrition Support [facility], JUANA Pertinent Medications MAALOX (PRN), D50W, GLUTOSE 40 % (PRN), LASIX, GLUCAGON (PRN) , INS-SS, SYNTHROID, MOM (PRN) , THEREGRAN, KLOR-COM Pertinent Labs NO UPDATED LABS 12/14 WNL Nutritional Hx/Data Height 1.78 m Height (Calculated Centimeters) 177.8 Current Weight (lbs) 80.286 kg Weight (Calculated Kilograms) 80.3 Weight (Calculated Grams) 76589.8 [place] Body Weight 166 % [place] Body Weight 107 Body Mass Index (BMI) 25.4 Weight Status Approriate GI Symptoms GI Symptoms None Last BM 12/14 X 2 Skin Integrity/Comment: WNL, INTACT, DRYNESS Current %PO Good (75-100%) Estimated Nutritional Goals BEE in Kcals: Using Current wt Calories/Kcals/Kg 25-30 Kcals Calculated Protein: Using Current wt Protein g/k.0-1.2 Protein Calculated 80-97 Fluid: ml 2989-6489 ML (25-30 ML/KG) Nutritional Problem No current Nutrition Prob Problem NO NUTRITION DIAGNOSIS AT THIS TIME. Etiology N/A Signs/Symptoms: N/A Malnutrition Related to Morbid Obesity Malnutrition related to morbid obesity No Intervention/Recommendation Comments [facility]UE WITH [facility], [facility] DIET ORDERED. Expected Outcomes/Goals Expected Outcomes/Goals 1. PO INTAKE TO CONTINUE TO MEET > 75% OF NUTRITIONAL NEEDS. 2. MONITOR PO INTAKE, WT, NUTRITION RELATED LABS AND SKIN INTEGRITY. 3. F/U LOW RISK IN 7 DAYS, 12/23
--- NOTE | 2018-12-23 23:10 | Progress Notes ---
DATE: 12/23/2018 Case was discussed with staff of the patient, also discussed the care with his daughter who wants the patient to go to nursing facility in the [facility] and I asked her to discuss it with the classification case manager. She says they do not want ____ necessarily that is not what they are looking for. The patient continues to be confused, unpredictable, impulsive. Continues to have episodes of agitation. Continues to have poor insight. I will be increasing his Seroquel dose from 75 mg to 100 mg at bedtime and so far no side effects, no sedation, no nausea. Continues to be paranoid at times and we will continue to work with the patient in group therapy, milieu therapy, and adjust the medication as needed. [facility]# [id number]
[2018-12-24] MEDS: Levothyroxine 0.112 Mg Tab PO SCH (06:30)
[2018-12-24] MEDS: Potassium Chloride 20 mEq ER Tab PO SCH ×2 (08:51→16:20)
[2018-12-24] MEDS: Aspirin 81mg Chewable Tab PO SCH (08:51)
[2018-12-24] MEDS: Multivitamin Tab PO SCH (08:52)
[2018-12-24] MEDS: INSULIN LISPRO SLIDING SCALE 100 UNITS/ML UNIT SUBQ SCH (09:35)
--- NOTE | 2018-12-24 12:37 | Internal Medicine Prog Note ---
Internal Medicine Subjective - Subjective Patient seen and examined:: with staff, chart reviewed Patient is:: awake, verbal, interactive, denies any new complaints, confused Per staff patient has:: no adverse event, no episodes of fall, tolerating meds Internal Medicine Objective - Results Recent Labs: Laboratory Last Values Triglycerides 103 mg/dL (<150) 12/14/18 07:00 Cholesterol 178 mg/dL (<200) 12/14/18 07:00 LDL Cholesterol Direct 124 mg/dL (75-193) 12/14/18 07:00 HDL Cholesterol 44 mg/dL (23-92) 12/14/18 07:00 - Physical Exam Vitals and I&O: Vital Signs Temp 97 F 12/24/18 06:35 Pulse 81 12/24/18 08:52 Resp 18 12/24/18 08:00 BP 155/86 12/24/18 08:52 Pulse Ox 97 12/24/18 06:35 Intake & Output 12/23/18 12/24/18 12/24/18 18:59 06:59 18:59 Intake Total 800 120 Balance 800 120 Intake: Oral 800 120 Other: # Voids 3 3 # Bowel Movements 1 Active Medications: Current Medications Acetaminophen (Tylenol) 650 mg PO Q4HR PRN PRN Reason: Mild Pain / Temp above 100 Stop: 02/11/19 16:14 Last Admin: 12/20/18 09:10 Dose: 650 mg Al Hydrox/Mg Hydrox/Simethicone (Maalox) 30 ml PO Q4HR PRN PRN Reason: GI DISTRESS Stop: 02/11/19 16:14 Aspirin (Aspirin Chewable) 81 mg PO DAILY GEORGIE Stop: 02/12/19 08:59 Last Admin: 12/24/18 08:51 Dose: 81 mg Dextrose (D50w) 50 ml IVP PRN PRN PRN Reason: BS Below 70 & not tolerate po Stop: 02/13/19 12:29 Dextrose (Glutose 40%) 18.75 gm PO PRN PRN PRN Reason: BS Below 70 & tolerate po Stop: 02/13/19 12:29 Donepezil HCl (Aricept) 5 mg PO HS GEORGIE Stop: 02/12/19 20:59 Last Admin: 12/23/18 20:40 Dose: 5 mg Furosemide (Lasix) 40 mg PO DAILY GE[facility]IE Stop: 02/12/19 08:59 Last Admin: 12/24/18 08:52 Dose: 40 mg Glucagon (Glucagen) 1 mg IM PRN PRN PRN Reason: BS Below 70&dextrose ineffecti Stop: 02/13/19 12:29 Insulin Human Lispro (Humalog Insulin Sliding Scale) 0 units SUBQ QAM [facility]; Protocol Stop: 02/17/19 07:29 Last Admin: 12/24/18 09:35 Dose: Not Given Levothyroxine Sodium (Synthroid) 0.112 mg PO QDAC [facility]IE Stop: 02/17/19 07:29 Last Admin: 12/24/18 06:30 Dose: 0.112 mg Lorazepam (Ativan) 0.5 mg PO Q4HR PRN; Protocol PRN Reason: Anxiety Stop: 01/12/19 16:14 Last Admin: 12/22/18 20:44 Dose: 0.5 mg Losartan Potassium (Cozaar) 50 mg PO DAILY GE[facility]GIE Stop: 02/12/19 08:59 Last Admin: 12/24/18 08:51 Dose: 50 mg Magnesium Hydroxide (Milk Of Magnesia) 30 ml PO HS PRN PRN Reason: Constipation Memantine (Namenda) 5 mg PO DAILY GE[facility]GIE Stop: 02/16/19 08:59 Last Admin: 12/24/18 08:52 Dose: 5 mg Metoprolol Tartrate (Lopressor) 25 mg PO DAILY GE[facility]IE Stop: 02/12/19 08:59 Last Admin: 12/24/18 08:52 Dose: 25 mg Mirtazapine (Remeron) 7.5 mg PO HS GE[facility]IE; Protocol Stop: 02/12/19 20:59 Last Admin: 12/23/18 20:45 Dose: 7.5 mg Multivitamins/Vitamin C (Theragran) 1 tab PO DAILY GE[facility]GIE Stop: 02/12/19 08:59 Last Admin: 12/24/18 08:52 Dose: 1 tab Potassium Chloride (Klor-Con) 20 meq PO BID GEORGIE Stop: 02/11/19 16:59 Last Admin: 12/24/18 08:51 Dose: 20 meq Quetiapine Fumarate (Seroquel) 25 mg PO BID GEORGIE; Protocol Stop: 02/13/19 16:59 Last Admin: 12/24/18 08:52 Dose: 25 mg Quetiapine Fumarate (Seroquel) 100 mg PO HS GEORGIE Stop: 02/21/19 20:59 Last Admin: 12/23/18 20:40 Dose: 100 mg Zolpidem Tartrate (Ambien) 5 mg PO HS PRN PRN Reason: Insomnia Stop: 02/15/19 10:44 Last Admin: 12/23/18 20:58 Dose: 5 mg General: demented, disheveled, appears younger HEENT: NC/AT, PERRLA, EOMI, thinning hair Neck: Supple Lungs: CTAB Cardiovascular: RRR, Normal S1, Normal S2, with murmur Abdomen: soft, non-tender, globular, positive bowel sound Extremities: excoriation Neurological: no change Internal Medicine Assmt/Plan - Assessment Assessment: ASSESSMENT AND PLAN: Right hearing loss, 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 Continue angiotensin receptor iván. Continue Synthroid. Continue on aspirin. We will continue monitoring the patient closely. We will change the patient's diet to no concentrated sweets. Nutritional Asmnt/Malnutr-PDOC - Dietary Evaluation Malnutrition Findings (Please click <Entered> for more info): Nutritional Asmnt/Malnutrition Start: 12/16/18 13: 14 Text: Status: Complete Freq: Protocol: Document 12/16/18 13:14 GEE (Rec: 12/16/18 13:20 GEE [email or web address]) Nutritional Asmnt/Malnutrition Patient General Information Nutritional Screening Moderate Risk Diagnosis PSYCHOSIS NOS Pertinent Medical Hx/Surgical Hx HTN, HYPOTHYROIDISM, CHF, CARDIAC ARRYTHMIA, STATUS POST PACEMAKER, DEMENTIA, BORDERLINE DIABETES Subjective Information PT IS A 88 YEAR OLD MALE ADMITTED ON 12/13 FROM HOME ADMITTED D/T PSYCHOSIS NOS, PARANOIA. HT: 510 WT: 177 LB (80.45 KG) BMI: 22.86 (NORMAL) GI: WNL,FLAT, SOFT, NON-TENDER BM: 7/1 X 2 I/O: 1500/NOT NOTED SKIN: WNL, INTACT, DRYNESS TONIO: 21 DIET ORDER: CCHO, NCS ESTIMATED ENERGY NEEDS: ( GERIATRIC, CBW) 3551-0440 KCALS (25-30 KCALS/ KG) 80-97 G PRO (1.0-1.2 G/KG) 1494-6089 ML (25-30 ML/KG) PT IS IN A VERY CONFUSED STATE , BUT DOES EAT WELL PER RN. PT PO INTAKE: 80% MEALS X 3 DAYS , PER MEAL/NUTRITION ACTIVITY RECORD. DIETARY IS CURRENTLY PROVIDING AN ESTIMATED 2300 KCALS AND 125 GM PRO. PER PT PO INTAKE, THIS IS PROVIDING AN ESTIMATED 1840 KCALS AND 100 GM PRO, TO MEET 91% KCAL AND 100% PRO NEEDS ADEQUATE. Current Diet Order/ Nutrition Support [facility], JUANA Pertinent Medications MAALOX (PRN), D50W, GLUTOSE 40 % (PRN), LASIX, GLUCAGON (PRN) , INS-SS, SYNTHROID, MOM (PRN) , THEREGRAN, KLOR-COM Pertinent Labs NO UPDATED LABS 12/14 WNL Nutritional Hx/Data Height 1.78 m Height (Calculated Centimeters) 177.8 Current Weight (lbs) 80.286 kg Weight (Calculated Kilograms) 80.3 Weight (Calculated Grams) 08156.8 [place] Body Weight 166 % [place] Body Weight 107 Body Mass Index (BMI) 25.4 Weight Status Approriate GI Symptoms GI Symptoms None Last BM 12/14 X 2 Skin Integrity/Comment: WNL, INTACT, DRYNESS Current %PO Good (75-100%) Estimated Nutritional Goals BEE in Kcals: Using Current wt Calories/Kcals/Kg 25-30 Kcals Calculated Protein: Using Current wt Protein g/k.0-1.2 Protein Calculated 80-97 Fluid: ml 5259-6131 ML (25-30 ML/KG) Nutritional Problem No current Nutrition Prob Problem NO NUTRITION DIAGNOSIS AT THIS TIME. Etiology N/A Signs/Symptoms: N/A Malnutrition Related to Morbid Obesity Malnutrition related to morbid obesity No Intervention/Recommendation Comments CONTINUE WITH [facility], [facility] DIET ORDERED. Expected Outcomes/Goals Expected Outcomes/Goals 1. PO INTAKE TO CONTINUE TO MEET > 75% OF NUTRITIONAL NEEDS. 2. MONITOR PO INTAKE, WT, NUTRITION RELATED LABS AND SKIN INTEGRITY. 3. F/U LOW RISK IN 7 DAYS, 12/23
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
[2018-12-25] MEDS: Levothyroxine 0.112 Mg Tab PO SCH (06:37)
[2018-12-25] MEDS ORDERED: INSULIN LISPRO SLIDING SCALE 100 UNITS/ML UNIT SUBQ STA (10:03)
[2018-12-25] MEDS ORDERED: GLUCAGON HCl 1 MG KIT IM PRN (10:03)
[2018-12-25] MEDS ORDERED: Dextrose 50% 50 mL Abboject IVP PRN (10:03)
[2018-12-25] MEDS: Aspirin 81mg Chewable Tab PO SCH (10:21)
[2018-12-25] MEDS: Multivitamin Tab PO SCH (10:23)
[2018-12-25] MEDS: Potassium Chloride 20 mEq ER Tab PO SCH ×2 (10:23→17:45)
[2018-12-25] MEDS ORDERED: INSULIN LISPRO SLIDING SCALE 100 UNITS/ML UNIT SUBQ ONE (11:30)
--- NOTE | 2018-12-25 12:35 | Internal Medicine Prog Note ---
Internal Medicine Subjective - Subjective Patient seen and examined:: with staff, chart reviewed Patient is:: awake, verbal, interactive, denies any new complaints, confused Per staff patient has:: no adverse event, no episodes of fall, tolerating meds Internal Medicine Objective - Results Recent Labs: Laboratory Last Values Triglycerides 103 mg/dL (<150) 12/14/18 07:00 Cholesterol 178 mg/dL (<200) 12/14/18 07:00 LDL Cholesterol Direct 124 mg/dL (75-193) 12/14/18 07:00 HDL Cholesterol 44 mg/dL (23-92) 12/14/18 07:00 - Physical Exam Vitals and I&O: Vital Signs Temp 98.2 F 12/24/18 20:00 Pulse 78 12/25/18 10:23 Resp 20 12/24/18 20:00 BP 144/71 12/25/18 10:23 Pulse Ox 96 12/24/18 20:00 Intake & Output 12/24/18 12/25/18 12/25/18 18:59 06:59 18:59 Intake Total 1000 Balance 1000 Intake: Oral 1000 Other: # Voids 4 # Bowel Movements 1 Active Medications: Current Medications Acetaminophen (Tylenol) 650 mg PO Q4HR PRN PRN Reason: Mild Pain / Temp above 100 Stop: 02/11/19 16:14 Last Admin: 12/20/18 09:10 Dose: 650 mg Al Hydrox/Mg Hydrox/Simethicone (Maalox) 30 ml PO Q4HR PRN PRN Reason: GI DISTRESS Stop: 02/11/19 16:14 Aspirin (Aspirin Chewable) 81 mg PO DAILY [facility] Stop: 02/12/19 08:59 Last Admin: 12/25/18 10:21 Dose: 81 mg Dextrose (Glutose 40%) 18.75 gm PO PRN PRN PRN Reason: BS Below 70 & tolerate po Stop: 02/13/19 12:29 Dextrose (D50w) 50 ml IVP PRN PRN PRN Reason: Blood Glucose less than 70 Stop: 02/23/19 10:02 Dextrose (Glutose 40%) 18.75 gm PO PRN PRN PRN Reason: Blood Glucose less than 70 Stop: 02/23/19 10:02 Donepezil HCl (Aricept) 5 mg PO HS [facility] Stop: 02/12/19 20:59 Last Admin: 12/24/18 21:35 Dose: 5 mg Furosemide (Lasix) 40 mg PO DAILY GEORGIE Stop: 02/12/19 08:59 Last Admin: 12/25/18 10:21 Dose: Not Given Glucagon (Glucagen) 1 mg IM PRN PRN PRN Reason: Blood Glucose less than 70 Stop: 02/23/19 10:02 Insulin Human Lispro (Humalog Insulin Sliding Scale) 0 units SUBQ 0630 GEORGIE; Protocol Stop: 02/17/19 07:29 Levothyroxine Sodium (Synthroid) 0.112 mg PO QDAC GE[facility]GIE Stop: 02/17/19 07:29 Last Admin: 12/25/18 06:37 Dose: 0.112 mg Lorazepam (Ativan) 0.5 mg PO Q4HR PRN; Protocol PRN Reason: Anxiety Stop: 01/12/19 16:14 Last Admin: 12/24/18 22:15 Dose: 0.5 mg Losartan Potassium (Cozaar) 50 mg PO DAILY GEORGIE Stop: 02/12/19 08:59 Last Admin: 12/25/18 10:21 Dose: 50 mg Magnesium Hydroxide (Milk Of Magnesia) 30 ml PO HS PRN PRN Reason: Constipation Memantine (Namenda) 5 mg PO DAILY GEORGIE Stop: 02/16/19 08:59 Last Admin: 12/25/18 10:22 Dose: 5 mg Metoprolol Tartrate (Lopressor) 25 mg PO DAILY GEORGIE Stop: 02/12/19 08:59 Last Admin: 12/25/18 10:23 Dose: Not Given Mirtazapine (Remeron) 7.5 mg PO HS GE[facility]GIE; Protocol Stop: 02/12/19 20:59 Last Admin: 12/24/18 21:35 Dose: 7.5 mg Multivitamins/Vitamin C (Theragran) 1 tab PO DAILY GEORGIE Stop: 02/12/19 08:59 Last Admin: 12/25/18 10:23 Dose: 1 tab Potassium Chloride (Klor-Con) 20 meq PO BID GE[facility]GIE Stop: 02/11/19 16:59 Last Admin: 12/25/18 10:23 Dose: 20 meq Quetiapine Fumarate (Seroquel) 25 mg PO BID GEORGIE; Protocol Stop: 02/13/19 16:59 Last Admin: 12/25/18 10:24 Dose: 25 mg Quetiapine Fumarate (Seroquel) 100 mg PO HS GE[facility]GIE Stop: 02/21/19 20:59 Last Admin: 12/24/18 21:35 Dose: 100 mg Zolpidem Tartrate (Ambien) 5 mg PO HS PRN PRN Reason: Insomnia Stop: 02/15/19 10:44 Last Admin: 12/24/18 22:41 Dose: 5 mg General: demented, disheveled, appears younger HEENT: NC/AT, PERRLA, EOMI, thinning hair Neck: Supple Lungs: CTAB Cardiovascular: RRR, Normal S1, Normal S2, with murmur Abdomen: soft, non-tender, globular, positive bowel sound Extremities: excoriation Neurological: no change Internal Medicine Assmt/Plan - Assessment Assessment: ASSESSMENT AND PLAN: Right hearing loss, 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 Continue angiotensin receptor iván. Continue Synthroid. Continue on aspirin. We will continue monitoring the patient closely. We will change the patient's diet to no concentrated sweets. Nutritional Asmnt/Malnutr-PDOC - Dietary Evaluation Malnutrition Findings (Please click <Entered> for more info): Nutritional Asmnt/Malnutrition Start: 12/16/18 13: 14 Text: Status: Complete Freq: Protocol: Document 12/16/18 13:14 GEE (Rec: 12/16/18 13:20 GEE [email or web address]) Nutritional Asmnt/Malnutrition Patient General Information Nutritional Screening Moderate Risk Diagnosis PSYCHOSIS NOS Pertinent Medical Hx/Surgical Hx HTN, HYPOTHYROIDISM, CHF, CARDIAC ARRYTHMIA, STATUS POST PACEMAKER, DEMENTIA, BORDERLINE DIABETES Subjective Information PT IS A 88 YEAR OLD MALE ADMITTED ON 12/13 FROM HOME ADMITTED D/T PSYCHOSIS NOS, PARANOIA. HT: 510 WT: 177 LB (80.45 KG) BMI: 22.86 (NORMAL) GI: WNL,FLAT, SOFT, NON-TENDER BM: 7/1 X 2 I/O: 1500/NOT NOTED SKIN: WNL, INTACT, DRYNESS TONIO: 21 DIET ORDER: CCHO, NCS ESTIMATED ENERGY NEEDS: ( GERIATRIC, CBW) KCALS (25-30 KCALS/ KG) 80-97 G PRO (1.0-1.2 G/KG) 2585-8424 ML (25-30 ML/KG) PT IS IN A VERY CONFUSED STATE , BUT DOES EAT WELL PER RN. PT PO INTAKE: 80% MEALS X 3 DAYS , PER MEAL/NUTRITION ACTIVITY RECORD. DIETARY IS CURRENTLY PROVIDING AN ESTIMATED 2300 KCALS AND 125 GM PRO. PER PT PO INTAKE, THIS IS PROVIDING AN ESTIMATED 1840 KCALS AND 100 GM PRO, TO MEET 91% KCAL AND 100% PRO NEEDS ADEQUATE. Current Diet Order/ Nutrition [facility] J[facility] Pertinent Medications MAALOX (PRN), D50W, GLUTOSE 40 % (PRN), LASIX, GLUCAGON (PRN) , INS-SS, SYNTHROID, MOM (PRN) , THEREGRAN, KLOR-COM Pertinent Labs NO UPDATED LABS 12/14 WNL Nutritional Hx/Data Height 1.78 m Height (Calculated Centimeters) 177.8 Current Weight (lbs) 80.286 kg Weight (Calculated Kilograms) 80.3 Weight (Calculated Grams) 94062.8 [place] Body Weight 166 % [place] Body Weight 107 Body Mass Index (BMI) 25.4 Weight Status Approriate GI Symptoms GI Symptoms None Last BM 12/14 X 2 Skin Integrity/Comment: WNL, INTACT, DRYNESS Current %PO Good (75-100%) Estimated Nutritional Goals BEE in Kcals: Using Current wt Calories/Kcals/Kg 25-30 Kcals Calculated Protein: Using Current wt Protein g/k.0-1.2 Protein Calculated 80-97 Fluid: ml 5048-2387 ML (25-30 ML/KG) Nutritional Problem No current Nutrition Prob Problem NO NUTRITION DIAGNOSIS AT THIS TIME. Etiology N/A Signs/Symptoms: N/A Malnutrition Related to Morbid Obesity Malnutrition related to morbid obesity No Intervention/Recommendation Comments [facility] ORDERED. Expected Outcomes/Goals Expected Outcomes/Goals 1. PO INTAKE TO CONTINUE TO MEET > 75% OF NUTRITIONAL NEEDS. 2. MONITOR PO INTAKE, WT, NUTRITION RELATED LABS AND SKIN INTEGRITY. 3. F/U LOW RISK IN 7 DAYS, 12/23
--- NOTE | 2018-12-25 16:33 | Progress Notes ---
DATE: 12/25/2018 Case was discussed with staff of the patient, reviewed records. The patient was going to be evaluated by [facility] today. His family would like him to go there. The patient is sleeping better, eating better. He is confused, gets paranoid easily, agitated; however, in general, he has been responding better to redirection. He is unable to make safe plan for self-care. No side effects of the medication, no sedation, no nausea, no extrapyramidal symptoms. We will continue the patient in group therapy, milieu therapy, adjust the medication as needed. JOB# [id number]
[2018-12-25] MEDS: INSULIN LISPRO SLIDING SCALE 100 UNITS/ML UNIT SUBQ SCH (18:31)
[2018-12-26] MEDS: INSULIN LISPRO SLIDING SCALE 100 UNITS/ML UNIT SUBQ SCH (06:26)
[2018-12-26] MEDS: Levothyroxine 0.112 Mg Tab PO SCH (06:32)
[2018-12-26] MEDS: Aspirin 81mg Chewable Tab PO SCH (09:04)
[2018-12-26] MEDS: Multivitamin Tab PO SCH (09:04)
[2018-12-26] MEDS: Potassium Chloride 20 mEq ER Tab PO SCH ×2 (09:04→17:31)
--- NOTE | 2018-12-26 13:38 | Internal Medicine Prog Note ---
Internal Medicine Subjective - Subjective Patient seen and examined:: with staff, chart reviewed Patient is:: awake, verbal, interactive, denies any new complaints, confused Per staff patient has:: no adverse event, no episodes of fall, tolerating meds Internal Medicine Objective - Results Recent Labs: Laboratory Last Values Triglycerides 103 mg/dL (<150) 12/14/18 07:00 Cholesterol 178 mg/dL (<200) 12/14/18 07:00 LDL Cholesterol Direct 124 mg/dL (75-193) 12/14/18 07:00 HDL Cholesterol 44 mg/dL (23-92) 12/14/18 07:00 - Physical Exam Vitals and I&O: Vital Signs Temp 97.8 F 12/26/18 05:49 Pulse 70 12/26/18 09:05 Resp 20 12/26/18 05:49 BP 139/85 12/26/18 09:05 Pulse Ox 96 12/26/18 05:49 Intake & Output 12/25/18 12/26/18 12/26/18 18:59 06:59 18:59 Intake Total 1000 240 Balance 1000 240 Intake: Oral 1000 240 Other: # Voids 4 2 # Bowel Movements 1 Active Medications: Current Medications Acetaminophen (Tylenol) 650 mg PO Q4HR PRN PRN Reason: Mild Pain / Temp above 100 Stop: 02/11/19 16:14 Last Admin: 12/20/18 09:10 Dose: 650 mg Al Hydrox/Mg Hydrox/Simethicone (Maalox) 30 ml PO Q4HR PRN PRN Reason: GI DISTRESS Stop: 02/11/19 16:14 Aspirin (Aspirin Chewable) 81 mg PO DAILY [facility] Stop: 02/12/19 08:59 Last Admin: 12/26/18 09:04 Dose: 81 mg Dextrose (Glutose 40%) 18.75 gm PO PRN PRN PRN Reason: BS Below 70 & tolerate po Stop: 02/13/19 12:29 Dextrose (Glutose 40%) 18.75 gm PO PRN PRN PRN Reason: Blood Glucose less than 70 Stop: 02/23/19 10:02 Donepezil HCl (Aricept) 5 mg PO HS [facility] Stop: 02/12/19 20:59 Last Admin: 12/25/18 21:16 Dose: 5 mg Furosemide (Lasix) 40 mg PO DAILY [facility] Stop: 02/12/19 08:59 Last Admin: 12/26/18 09:04 Dose: 40 mg Glucagon (Glucagen) 1 mg IM PRN PRN PRN Reason: Blood Glucose less than 70 Stop: 02/23/19 10:02 Insulin Human Lispro (Humalog Insulin Sliding Scale) 0 units SUBQ 0630 [facility]; Protocol Stop: 02/17/19 07:29 Last Admin: 12/26/18 06:26 Dose: Not Given Levothyroxine Sodium (Synthroid) 0.112 mg PO QDAC [facility] Stop: 02/17/19 07:29 Last Admin: 12/26/18 06:32 Dose: 0.112 mg Lorazepam (Ativan) 0.5 mg PO Q4HR PRN; Protocol PRN Reason: Anxiety Stop: 01/12/19 16:14 Last Admin: 12/26/18 09:05 Dose: 0.5 mg Losartan Potassium (Cozaar) 50 mg PO DAILY [facility] Stop: 02/12/19 08:59 Last Admin: 12/26/18 09:05 Dose: 50 mg Magnesium Hydroxide (Milk Of Magnesia) 30 ml PO HS PRN PRN Reason: Constipation Memantine (Namenda) 5 mg PO DAILY [facility] Stop: 02/16/19 08:59 Last Admin: 12/26/18 09:05 Dose: 5 mg Metoprolol Tartrate (Lopressor) 25 mg PO DAILY [facility] Stop: 02/12/19 08:59 Last Admin: 12/26/18 09:04 Dose: 25 mg Mirtazapine (Remeron) 7.5 mg PO HS [facility]; Protocol Stop: 02/12/19 20:59 Last Admin: 12/25/18 21:15 Dose: 7.5 mg Multivitamins/Vitamin C (Theragran) 1 tab PO DAILY [facility] Stop: 02/12/19 08:59 Last Admin: 12/26/18 09:04 Dose: 1 tab Potassium Chloride (Klor-Con) 20 meq PO BID [facility] Stop: 02/11/19 16:59 Last Admin: 12/26/18 09:04 Dose: 20 meq Quetiapine Fumarate (Seroquel) 25 mg PO BID [facility]; Protocol Stop: 02/13/19 16:59 Last Admin: 12/26/18 09:05 Dose: 25 mg Quetiapine Fumarate (Seroquel) 100 mg PO HS [facility] Stop: 02/21/19 20:59 Last Admin: 12/25/18 21:15 Dose: 100 mg Zolpidem Tartrate (Ambien) 5 mg PO HS PRN PRN Reason: Insomnia Stop: 02/15/19 10:44 Last Admin: 12/25/18 22:47 Dose: 5 mg General: demented, disheveled, appears younger HEENT: NC/AT, PERRLA, EOMI, thinning hair Neck: Supple Lungs: CTAB Cardiovascular: RRR, Normal S1, Normal S2, with murmur Abdomen: soft, non-tender, globular, positive bowel sound Extremities: excoriation Neurological: no change Internal Medicine Assmt/Plan - Assessment Assessment: ASSESSMENT AND PLAN: Right hearing loss, 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 Continue angiotensin receptor iván. Continue Synthroid. Continue on aspirin. We will continue monitoring the patient closely. We will change the patient's diet to no concentrated sweets. Nutritional Asmnt/Malnutr-PDOC - Dietary Evaluation Malnutrition Findings (Please click <Entered> for more info): Nutritional Asmnt/Malnutrition Start: 12/16/18 13: 14 Text: Status: Complete Freq: Protocol: Document 12/16/18 13:14 GEE (Rec: 12/16/18 13:20 GEE [email or web address]) Nutritional Asmnt/Malnutrition Patient General Information Nutritional Screening Moderate Risk Diagnosis PSYCHOSIS NOS Pertinent Medical Hx/Surgical Hx HTN, HYPOTHYROIDISM, CHF, CARDIAC ARRYTHMIA, STATUS POST PACEMAKER, DEMENTIA, BORDERLINE DIABETES Subjective Information PT IS A 88 YEAR OLD MALE ADMITTED ON 12/13 FROM HOME ADMITTED D/T PSYCHOSIS NOS, PARANOIA. HT: 510 WT: 177 LB (80.45 KG) BMI: 22.86 (NORMAL) GI: WNL,FLAT, SOFT, NON-TENDER BM: 7/1 X 2 I/O: 1500/NOT NOTED SKIN: WNL, INTACT, DRYNESS TONIO: 21 DIET ORDER: CCHO, NCS ESTIMATED ENERGY NEEDS: ( GERIATRIC, CBW) [id number] KCALS (25-30 KCALS/ KG) 80-97 G PRO (1.0-1.2 G/KG) 9346-2954 ML (25-30 ML/KG) PT IS IN A VERY CONFUSED STATE , BUT DOES EAT WELL PER RN. PT PO INTAKE: 80% MEALS X 3 DAYS , PER MEAL/NUTRITION ACTIVITY RECORD. DIETARY IS CURRENTLY PROVIDING AN ESTIMATED 2300 KCALS AND 125 GM PRO. PER PT PO INTAKE, THIS IS PROVIDING AN ESTIMATED 1840 KCALS AND 100 GM PRO, TO MEET 91% KCAL AND 100% PRO NEEDS ADEQUATE. Current Diet Order/ Nutrition [facility] Pertinent Medications MAALOX (PRN), D50W, GLUTOSE 40 % (PRN), LASIX, GLUCAGON (PRN) , INS-SS, SYNTHROID, MOM (PRN) , THEREGRAN, KLOR-COM Pertinent Labs NO UPDATED LABS 12/14 WNL Nutritional Hx/Data Height 1.78 m Height (Calculated Centimeters) 177.8 Current Weight (lbs) 80.286 kg Weight (Calculated Kilograms) 80.3 Weight (Calculated Grams) 30173.8 [place] Body Weight 166 % [place] Body Weight 107 Body Mass Index (BMI) 25.4 Weight Status Approriate GI Symptoms GI Symptoms None Last BM 12/14 X 2 Skin Integrity/Comment: WNL, INTACT, DRYNESS Current %PO Good (75-100%) Estimated Nutritional Goals BEE in Kcals: Using Current wt Calories/Kcals/Kg 25-30 Kcals Calculated Protein: Using Current wt Protein g/k.0-1.2 Protein Calculated 80-97 Fluid: ml 9085-9374 ML (25-30 ML/KG) Nutritional Problem No current Nutrition Prob Problem NO NUTRITION DIAGNOSIS AT THIS TIME. Etiology N/A Signs/Symptoms: N/A Malnutrition Related to Morbid Obesity Malnutrition related to morbid obesity No Intervention/Recommendation Comments [facility]INUE WITH [facility], [facility] DIET ORDERED. Expected Outcomes/Goals Expected Outcomes/Goals 1. PO INTAKE TO CONTINUE TO MEET > 75% OF NUTRITIONAL NEEDS. 2. MONITOR PO INTAKE, WT, NUTRITION RELATED LABS AND SKIN INTEGRITY. 3. F/U LOW RISK IN 7 DAYS, 12/23
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
[2018-12-27] MEDS: INSULIN LISPRO SLIDING SCALE 100 UNITS/ML UNIT SUBQ SCH (06:38)
[2018-12-27] MEDS: Levothyroxine 0.112 Mg Tab PO SCH (06:38)
[2018-12-27] MEDS: Multivitamin Tab PO SCH (08:25)
[2018-12-27] MEDS: Aspirin 81mg Chewable Tab PO SCH (08:25)
[2018-12-27] MEDS: Potassium Chloride 20 mEq ER Tab PO SCH ×2 (08:25→16:49)
--- NOTE | 2018-12-27 12:40 | Progress Notes ---
DATE: 12/27/2018 PSYCHIATRIC PROGRESS NOTE SUBJECTIVE: Chart was reviewed and the patient interviewed. Also discussed the patient's condition with the staff and reviewed records and labs. The patient is still confused, but seems to be slightly less than before. Also, his memory seems to be better. The patient also is interacting more. He is also less agitated and less paranoid. Also, continues to comply with taking his medications with no side effects of medications. ASSESSMENT: The patient seems to be less agitated. TREATMENT PLAN: Continue to monitor his behavior and his condition closely. Also, continue Seroquel 25 mg in the morning and 100 mg at bedtime and we will continue to follow up closely. [facility]# [id number]
--- NOTE | 2018-12-27 13:50 | Internal Medicine Prog Note ---
Internal Medicine Subjective - Subjective Patient seen and examined:: with staff, chart reviewed Patient is:: awake, verbal, interactive, denies any new complaints, confused Per staff patient has:: no adverse event, no episodes of fall, tolerating meds Internal Medicine Objective - Results Recent Labs: Laboratory Last Values POC Glucose 141 MG/DL (70 - 105) H 12/27/18 06:20 Triglycerides 103 mg/dL (<150) 12/14/18 07:00 Cholesterol 178 mg/dL (<200) 12/14/18 07:00 LDL Cholesterol Direct 124 mg/dL (75-193) 12/14/18 07:00 HDL Cholesterol 44 mg/dL (23-92) 12/14/18 07:00 - Physical Exam Vitals and I&O: Vital Signs Temp 97.7 F 12/27/18 04:23 Pulse 74 12/27/18 08:27 Resp 18 12/27/18 04:23 BP 125/61 12/27/18 08:27 Pulse Ox 95 12/27/18 04:23 Intake & Output 12/26/18 12/27/18 12/27/18 18:59 06:59 18:59 Intake Total 900 480 Balance 900 480 Intake: Oral 900 480 Other: # Voids 3 2 # Bowel Movements 1 Active Medications: Current Medications Acetaminophen (Tylenol) 650 mg PO Q4HR PRN PRN Reason: Mild Pain / Temp above 100 Stop: 02/11/19 16:14 Last Admin: 12/20/18 09:10 Dose: 650 mg Al Hydrox/Mg Hydrox/Simethicone (Maalox) 30 ml PO Q4HR PRN PRN Reason: GI DISTRESS Stop: 02/11/19 16:14 Aspirin (Aspirin Chewable) 81 mg PO DAILY [facility] Stop: 02/12/19 08:59 Last Admin: 12/27/18 08:25 Dose: 81 mg Dextrose (Glutose 40%) 18.75 gm PO PRN PRN PRN Reason: BS Below 70 & tolerate po Stop: 02/13/19 12:29 Dextrose (Glutose 40%) 18.75 gm PO PRN PRN PRN Reason: Blood Glucose less than 70 Stop: 02/23/19 10:02 Donepezil HCl (Aricept) 5 mg PO HS [facility] Stop: 02/12/19 20:59 Last Admin: 12/26/18 20:47 Dose: 5 mg Furosemide (Lasix) 40 mg PO DAILY [facility] Stop: 02/12/19 08:59 Last Admin: 12/27/18 08:25 Dose: 40 mg Glucagon (Glucagen) 1 mg IM PRN PRN PRN Reason: Blood Glucose less than 70 Stop: 02/23/19 10:02 Insulin Human Lispro (Humalog Insulin Sliding Scale) 0 units SUBQ 0630 [facility]; Protocol Stop: 02/17/19 07:29 Last Admin: 12/27/18 06:38 Dose: Not Given Levothyroxine Sodium (Synthroid) 0.112 mg PO QDAC [facility] Stop: 02/17/19 07:29 Last Admin: 12/27/18 06:38 Dose: 0.112 mg Lorazepam (Ativan) 0.5 mg PO Q4HR PRN; Protocol PRN Reason: Anxiety Stop: 01/12/19 16:14 Last Admin: 12/27/18 04:10 Dose: 0.5 mg Losartan Potassium (Cozaar) 50 mg PO DAILY [facility] Stop: 02/12/19 08:59 Last Admin: 12/27/18 08:26 Dose: 50 mg Magnesium Hydroxide (Milk Of Magnesia) 30 ml PO HS PRN PRN Reason: Constipation Memantine (Namenda) 5 mg PO DAILY [facility] Stop: 02/16/19 08:59 Last Admin: 12/27/18 08:25 Dose: 5 mg Metoprolol Tartrate (Lopressor) 25 mg PO DAILY [facility] Stop: 02/12/19 08:59 Last Admin: 12/27/18 08:27 Dose: 25 mg Mirtazapine (Remeron) 7.5 mg PO HS [facility]; Protocol Stop: 02/12/19 20:59 Last Admin: 12/26/18 20:47 Dose: 7.5 mg Multivitamins/Vitamin C (Theragran) 1 tab PO DAILY [facility] Stop: 02/12/19 08:59 Last Admin: 12/27/18 08:25 Dose: 1 tab Potassium Chloride (Klor-Con) 20 meq PO BID [facility] Stop: 02/11/19 16:59 Last Admin: 12/27/18 08:25 Dose: 20 meq Quetiapine Fumarate (Seroquel) 25 mg PO BID [facility]; Protocol Stop: 02/13/19 16:59 Last Admin: 12/27/18 08:25 Dose: 25 mg Quetiapine Fumarate (Seroquel) 100 mg PO HS [facility] Stop: 02/21/19 20:59 Last Admin: 12/26/18 20:47 Dose: 100 mg Zolpidem Tartrate (Ambien) 5 mg PO HS PRN PRN Reason: Insomnia Stop: 02/15/19 10:44 Last Admin: 12/26/18 23:28 Dose: 5 mg General: demented, disheveled, appears younger HEENT: NC/AT, PERRLA, EOMI, thinning hair Neck: Supple Lungs: CTAB Cardiovascular: RRR, Normal S1, Normal S2, with murmur Abdomen: soft, non-tender, globular, positive bowel sound Extremities: excoriation Neurological: no change Internal Medicine Assmt/Plan - Assessment Assessment: ASSESSMENT AND PLAN: Right hearing loss, 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 Continue angiotensin receptor iván. Continue Synthroid. Continue on aspirin. We will continue monitoring the patient closely. We will change the patient's diet to no concentrated sweets. Nutritional Asmnt/Malnutr-PDOC - Dietary Evaluation Malnutrition Findings (Please click <Entered> for more info): Nutritional Asmnt/Malnutrition Start: 12/16/18 13: 14 Text: Status: Complete Freq: Protocol: Document 12/16/18 13:14 GEE (Rec: 12/16/18 13:20 GEE [email or web address]) Nutritional Asmnt/Malnutrition Patient General Information Nutritional Screening Moderate Risk Diagnosis PSYCHOSIS NOS Pertinent Medical Hx/Surgical Hx HTN, HYPOTHYROIDISM, CHF, CARDIAC ARRYTHMIA, STATUS POST PACEMAKER, DEMENTIA, BORDERLINE DIABETES Subjective Information PT IS A 88 YEAR OLD MALE ADMITTED ON 12/13 FROM HOME ADMITTED D/T PSYCHOSIS NOS, PARANOIA. HT: 510 WT: 177 LB (80.45 KG) BMI: 22.86 (NORMAL) GI: WNL,FLAT, SOFT, NON-TENDER BM: 7/1 X 2 I/O: 1500/NOT NOTED SKIN: WNL, INTACT, DRYNESS TONIO: 21 DIET ORDER: CCHO, NCS ESTIMATED ENERGY NEEDS: ( GERIATRIC, CBW) [id number] KCALS (25-30 KCALS/ KG) 80-97 G PRO (1.0-1.2 G/KG) 6857-0404 ML (25-30 ML/KG) PT IS IN A VERY CONFUSED STATE , BUT DOES EAT WELL PER RN. PT PO INTAKE: 80% MEALS X 3 DAYS , PER MEAL/NUTRITION ACTIVITY RECORD. DIETARY IS CURRENTLY PROVIDING AN ESTIMATED 2300 KCALS AND 125 GM PRO. PER PT PO INTAKE, THIS IS PROVIDING AN ESTIMATED 1840 KCALS AND 100 GM PRO, TO MEET 91% KCAL AND 100% PRO NEEDS ADEQUATE. Current Diet Order/ Nutrition Support [facility], [facility] Pertinent Medications MAALOX (PRN), D50W, GLUTOSE 40 % (PRN), LASIX, GLUCAGON (PRN) , INS-SS, SYNTHROID, MOM (PRN) , THEREGRAN, KLOR-COM Pertinent Labs NO UPDATED LABS 12/14 WNL Nutritional Hx/Data Height 1.78 m Height (Calculated Centimeters) 177.8 Current Weight (lbs) 80.286 kg Weight (Calculated Kilograms) 80.3 Weight (Calculated Grams) 82305.8 [place] Body Weight 166 % [place] Body Weight 107 Body Mass Index (BMI) 25.4 Weight Status Approriate GI Symptoms GI Symptoms None Last BM 12/14 X 2 Skin Integrity/Comment: WNL, INTACT, DRYNESS Current %PO Good (75-100%) Estimated Nutritional Goals BEE in Kcals: Using Current wt Calories/Kcals/Kg 25-30 Kcals Calculated Protein: Using Current wt Protein g/k.0-1.2 Protein Calculated 80-97 Fluid: ml 8522-7756 ML (25-30 ML/KG) Nutritional Problem No current Nutrition Prob Problem NO NUTRITION DIAGNOSIS AT THIS TIME. Etiology N/A Signs/Symptoms: N/A Malnutrition Related to Morbid Obesity Malnutrition related to morbid obesity No Intervention/Recommendation Comments CONTINUE WITH [facility], [facility] DIET ORDERED. Expected Outcomes/Goals Expected Outcomes/Goals 1. PO INTAKE TO CONTINUE TO MEET > 75% OF NUTRITIONAL NEEDS. 2. MONITOR PO INTAKE, WT, NUTRITION RELATED LABS AND SKIN INTEGRITY. 3. F/U LOW RISK IN 7 DAYS, 12/23
[2018-12-28] MEDS: INSULIN LISPRO SLIDING SCALE 100 UNITS/ML UNIT SUBQ SCH (06:19)
[2018-12-28] MEDS: Levothyroxine 0.112 Mg Tab PO SCH (06:38)
[2018-12-28] MEDS: Potassium Chloride 20 mEq ER Tab PO SCH ×2 (08:55→16:19)
[2018-12-28] MEDS: Aspirin 81mg Chewable Tab PO SCH (08:55)
[2018-12-28] MEDS: Multivitamin Tab PO SCH (08:55)
--- NOTE | 2018-12-28 13:02 | Internal Medicine Prog Note ---
Internal Medicine Subjective - Subjective Patient seen and examined:: with staff, chart reviewed Patient is:: awake, verbal, interactive, denies any new complaints, confused Per staff patient has:: no adverse event, no episodes of fall, tolerating meds Internal Medicine Objective - Results Recent Labs: Laboratory Last Values POC Glucose 129 MG/DL (70 - 105) H 12/28/18 05:57 Triglycerides 103 mg/dL (<150) 12/14/18 07:00 Cholesterol 178 mg/dL (<200) 12/14/18 07:00 LDL Cholesterol Direct 124 mg/dL (75-193) 12/14/18 07:00 HDL Cholesterol 44 mg/dL (23-92) 12/14/18 07:00 - Physical Exam Vitals and I&O: Vital Signs Temp 98.8 F 12/28/18 06:02 Pulse 80 12/28/18 08:56 Resp 18 12/28/18 07:44 BP 123/61 12/28/18 08:56 Pulse Ox 97 12/28/18 06:02 Intake & Output 12/27/18 12/28/18 12/28/18 18:59 06:59 18:59 Intake Total 1300 480 Balance 1300 480 Intake: Oral 1300 480 Other: # Voids 3 # Bowel Movements 1 0 Active Medications: Current Medications Acetaminophen (Tylenol) 650 mg PO Q4HR PRN PRN Reason: Mild Pain / Temp above 100 Stop: 02/11/19 16:14 Last Admin: 12/20/18 09:10 Dose: 650 mg Al Hydrox/Mg Hydrox/Simethicone (Maalox) 30 ml PO Q4HR PRN PRN Reason: GI DISTRESS Stop: 02/11/19 16:14 Aspirin (Aspirin Chewable) 81 mg PO DAILY [facility] Stop: 02/12/19 08:59 Last Admin: 12/28/18 08:55 Dose: 81 mg Dextrose (Glutose 40%) 18.75 gm PO PRN PRN PRN Reason: BS Below 70 & tolerate po Stop: 02/13/19 12:29 Donepezil HCl (Aricept) 5 mg PO HS [facility] Stop: 02/12/19 20:59 Last Admin: 12/27/18 20:37 Dose: 5 mg Furosemide (Lasix) 40 mg PO DAILY [facility] Stop: 02/12/19 08:59 Last Admin: 12/28/18 08:56 Dose: 40 mg Glucagon (Glucagen) 1 mg IM PRN PRN PRN Reason: Blood Glucose less than 70 Stop: 02/23/19 10:02 Insulin Human Lispro (Humalog Insulin Sliding Scale) 0 units SUBQ 0630 [facility]; Protocol Stop: 02/17/19 07:29 Last Admin: 12/28/18 06:19 Dose: Not Given Levothyroxine Sodium (Synthroid) 0.112 mg PO QDAC [facility] Stop: 02/17/19 07:29 Last Admin: 12/28/18 06:38 Dose: 0.112 mg Lorazepam (Ativan) 0.5 mg PO Q4HR PRN; Protocol PRN Reason: Anxiety Stop: 01/12/19 16:14 Last Admin: 12/27/18 04:10 Dose: 0.5 mg Losartan Potassium (Cozaar) 50 mg PO DAILY [facility] Stop: 02/12/19 08:59 Last Admin: 12/28/18 08:55 Dose: 50 mg Magnesium Hydroxide (Milk Of Magnesia) 30 ml PO HS PRN PRN Reason: Constipation Memantine (Namenda) 5 mg PO BID [facility] Stop: 02/26/19 16:59 Metoprolol Tartrate (Lopressor) 25 mg PO DAILY [facility] Stop: 02/12/19 08:59 Last Admin: 12/28/18 08:56 Dose: 25 mg Mirtazapine (Remeron) 7.5 mg PO HS [facility]; Protocol Stop: 02/12/19 20:59 Last Admin: 12/27/18 20:33 Dose: 7.5 mg Multivitamins/Vitamin C (Theragran) 1 tab PO DAILY [facility] Stop: 02/12/19 08:59 Last Admin: 12/28/18 08:55 Dose: 1 tab Potassium Chloride (Klor-Con) 20 meq PO BID [facility] Stop: 02/11/19 16:59 Last Admin: 12/28/18 08:55 Dose: 20 meq Quetiapine Fumarate (Seroquel) 25 mg PO BID [facility]; Protocol Stop: 02/13/19 16:59 Last Admin: 12/28/18 08:55 Dose: 25 mg Quetiapine Fumarate (Seroquel) 100 mg PO HS [facility] Stop: 02/21/19 20:59 Last Admin: 12/27/18 20:37 Dose: 100 mg Zolpidem Tartrate (Ambien) 5 mg PO HS PRN PRN Reason: Insomnia Stop: 02/15/19 10:44 Last Admin: 12/27/18 21:29 Dose: 5 mg General: demented, disheveled, appears younger HEENT: NC/AT, PERRLA, EOMI, thinning hair Neck: Supple Lungs: CTAB Cardiovascular: RRR, Normal S1, Normal S2, with murmur Abdomen: soft, non-tender, globular, positive bowel sound Extremities: excoriation Neurological: no change Internal Medicine Assmt/Plan - Assessment Assessment: ASSESSMENT AND PLAN: Right hearing loss, 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 Continue angiotensin receptor iván. Continue Synthroid. Continue on aspirin. We will continue monitoring the patient closely. We will change the patient's diet to no concentrated sweets. skin care Nutritional Asmnt/Malnutr-PDOC - Dietary Evaluation Malnutrition Findings (Please click <Entered> for more info): Nutritional Asmnt/Malnutrition Start: 12/16/18 13: 14 Text: Status: Complete Freq: Protocol: Document 12/16/18 13:14 GEE (Rec: 12/16/18 13:20 GEE [email or web address]) Nutritional Asmnt/Malnutrition Patient General Information Nutritional Screening Moderate Risk Diagnosis PSYCHOSIS NOS Pertinent Medical Hx/Surgical Hx HTN, HYPOTHYROIDISM, CHF, CARDIAC ARRYTHMIA, STATUS POST PACEMAKER, DEMENTIA, BORDERLINE DIABETES Subjective Information PT IS A 88 YEAR OLD MALE ADMITTED ON 12/13 FROM HOME ADMITTED D/T PSYCHOSIS NOS, PARANOIA. HT: 510 WT: 177 LB (80.45 KG) BMI: 22.86 (NORMAL) GI: WNL,FLAT, SOFT, NON-TENDER BM: 7/1 X 2 I/O: 1500/NOT NOTED SKIN: WNL, INTACT, DRYNESS TONIO: 21 DIET ORDER: CCHO, NCS ESTIMATED ENERGY NEEDS: ( GERIATRIC, CBW) [id number] KCALS (25-30 KCALS/ KG) 80-97 G PRO (1.0-1.2 G/KG) 9730-9455 ML (25-30 ML/KG) PT IS IN A VERY CONFUSED STATE , BUT DOES EAT WELL PER RN. PT PO INTAKE: 80% MEALS X 3 DAYS , PER MEAL/NUTRITION ACTIVITY RECORD. DIETARY IS CURRENTLY PROVIDING AN ESTIMATED 2300 KCALS AND 125 GM PRO. PER PT PO INTAKE, THIS IS PROVIDING AN ESTIMATED 1840 KCALS AND 100 GM PRO, TO MEET 91% KCAL AND 100% PRO NEEDS ADEQUATE. Current Diet Order/ Nutrition Support [facility] Pertinent Medications MAALOX (PRN), D50W, GLUTOSE 40 % (PRN), LASIX, GLUCAGON (PRN) , INS-SS, SYNTHROID, MOM (PRN) , THEREGRAN, KLOR-COM Pertinent Labs NO UPDATED LABS 12/14 WNL Nutritional Hx/Data Height 1.78 m Height (Calculated Centimeters) 177.8 Current Weight (lbs) 80.286 kg Weight (Calculated Kilograms) 80.3 Weight (Calculated Grams) 17564.8 [place] Body Weight 166 % [place] Body Weight 107 Body Mass Index (BMI) 25.4 Weight Status Approriate GI Symptoms GI Symptoms None Last BM 12/14 X 2 Skin Integrity/Comment: WNL, INTACT, DRYNESS Current %PO Good (75-100%) Estimated Nutritional Goals BEE in Kcals: Using Current wt Calories/Kcals/Kg 25-30 Kcals Calculated 0763-6323 Protein: Using Current wt Protein g/k.0-1.2 Protein Calculated 80-97 Fluid: ml 3932-1563 ML (25-30 ML/KG) Nutritional Problem No current Nutrition Prob Problem NO NUTRITION DIAGNOSIS AT THIS TIME. Etiology N/A Signs/Symptoms: N/A Malnutrition Related to Morbid Obesity Malnutrition related to morbid obesity No Intervention/Recommendation Comments [facility]. Expected Outcomes/Goals Expected Outcomes/Goals 1. PO INTAKE TO CONTINUE TO MEET > 75% OF NUTRITIONAL NEEDS. 2. MONITOR PO INTAKE, WT, NUTRITION RELATED LABS AND SKIN INTEGRITY. 3. F/U LOW RISK IN 7 DAYS, 12/23
--- NOTE | 2018-12-28 22:22 | Progress Notes ---
DATE: 12/28/2018 Case was discussed with staff of the patient, reviewed records. The patient was evaluated by [facility], still awaiting acceptance. The patient continues to be confused, demented. He is easier to redirect with poor memory. Continues to have poor insight, continues to be unable to make safe plan for self-care. Continues to be unpredictable and impulsive, needing redirection with episodes of paranoia. No side effects with the medication, no sedation, no nausea, no extrapyramidal symptoms. I will be increasing his Namenda to 5 mg twice a day and we will continue to work with the patient in group therapy, milieu therapy, and adjust the medication as needed. JOB# [id number]
[2018-12-29] MEDS: Levothyroxine 0.112 Mg Tab PO SCH (06:52)
[2018-12-29] MEDS: INSULIN LISPRO SLIDING SCALE 100 UNITS/ML UNIT SUBQ SCH (06:53)
[2018-12-29] MEDS: Multivitamin Tab PO SCH (08:15)
[2018-12-29] MEDS: Potassium Chloride 20 mEq ER Tab PO SCH (08:15)
[2018-12-29] MEDS: Aspirin 81mg Chewable Tab PO SCH (08:16)
--- NOTE | 2018-12-29 13:23 | Internal Medicine Prog Note ---
Internal Medicine Subjective - Subjective Patient seen and examined:: with staff, chart reviewed Patient is:: awake, verbal, interactive, denies any new complaints, confused Per staff patient has:: no adverse event, no episodes of fall, tolerating meds Internal Medicine Objective - Results Recent Labs: Laboratory Last Values POC Glucose 150 MG/DL (70 - 105) H 12/29/18 11:36 Triglycerides 103 mg/dL (<150) 12/14/18 07:00 Cholesterol 178 mg/dL (<200) 12/14/18 07:00 LDL Cholesterol Direct 124 mg/dL (75-193) 12/14/18 07:00 HDL Cholesterol 44 mg/dL (23-92) 12/14/18 07:00 - Physical Exam Vitals and I&O: Vital Signs Temp 97.2 F 12/29/18 06:15 Pulse 74 12/29/18 08:16 Resp 19 12/29/18 06:15 BP 151/66 12/29/18 08:16 Pulse Ox 96 12/29/18 06:15 Intake & Output 12/28/18 12/29/18 12/29/18 18:59 06:59 18:59 Intake Total 360 Balance 360 Intake: Oral 360 Other: # Voids 3 1 # Bowel Movements 1 0 Active Medications: Current Medications Acetaminophen (Tylenol) 650 mg PO Q4HR PRN PRN Reason: Mild Pain / Temp above 100 Stop: 02/11/19 16:14 Last Admin: 12/20/18 09:10 Dose: 650 mg Al Hydrox/Mg Hydrox/Simethicone (Maalox) 30 ml PO Q4HR PRN PRN Reason: GI DISTRESS Stop: 02/11/19 16:14 Aspirin (Aspirin Chewable) 81 mg PO DAILY GEORGIE Stop: 02/12/19 08:59 Last Admin: 12/29/18 08:16 Dose: 81 mg Dextrose (Glutose 40%) 18.75 gm PO PRN PRN PRN Reason: BS Below 70 & tolerate po Stop: 02/13/19 12:29 Donepezil HCl (Aricept) 5 mg PO HS GEORGIE Stop: 02/12/19 20:59 Last Admin: 12/28/18 20:46 Dose: 5 mg Furosemide (Lasix) 40 mg PO DAILY GEORGIE Stop: 02/12/19 08:59 Last Admin: 12/29/18 08:15 Dose: 40 mg Glucagon (Glucagen) 1 mg IM PRN PRN PRN Reason: BS Below 70&dextrose ineffecti Stop: 02/23/19 10:02 Insulin Human Lispro (Humalog Insulin Sliding Scale) 0 units SUBQ 0630 [facility]; Protocol Stop: 02/17/19 07:29 Last Admin: 12/29/18 06:53 Dose: Not Given Levothyroxine Sodium (Synthroid) 0.112 mg PO QDAC GEORGIE Stop: 02/17/19 07:29 Last Admin: 12/29/18 06:52 Dose: 0.112 mg Lorazepam (Ativan) 0.5 mg PO Q4HR PRN; Protocol PRN Reason: Anxiety Stop: 01/12/19 16:14 Last Admin: 12/28/18 22:37 Dose: 0.5 mg Losartan Potassium (Cozaar) 50 mg PO DAILY GEORGIE Stop: 02/12/19 08:59 Last Admin: 12/29/18 08:16 Dose: 50 mg Magnesium Hydroxide (Milk Of Magnesia) 30 ml PO HS PRN PRN Reason: Constipation Memantine (Namenda) 5 mg PO BID [facility] Stop: 02/26/19 16:59 Last Admin: 12/29/18 08:16 Dose: 5 mg Metoprolol Tartrate (Lopressor) 25 mg PO DAILY [facility] Stop: 02/12/19 08:59 Last Admin: 12/29/18 08:16 Dose: 25 mg Mirtazapine (Remeron) 7.5 mg PO HS [facility]; Protocol Stop: 02/12/19 20:59 Last Admin: 12/28/18 20:46 Dose: 7.5 mg Multivitamins/Vitamin C (Theragran) 1 tab PO DAILY [facility] Stop: 02/12/19 08:59 Last Admin: 12/29/18 08:15 Dose: 1 tab Potassium Chloride (Klor-Con) 20 meq PO BID [facility] Stop: 02/11/19 16:59 Last Admin: 12/29/18 08:15 Dose: 20 meq Quetiapine Fumarate (Seroquel) 25 mg PO BID [facility]; Protocol Stop: 02/13/19 16:59 Last Admin: 12/29/18 08:17 Dose: 25 mg Quetiapine Fumarate (Seroquel) 100 mg PO HS [facility] Stop: 02/21/19 20:59 Last Admin: 12/28/18 20:46 Dose: 100 mg Zolpidem Tartrate (Ambien) 5 mg PO HS PRN PRN Reason: Insomnia Stop: 02/15/19 10:44 Last Admin: 12/28/18 20:46 Dose: 5 mg General: demented, disheveled, appears younger HEENT: NC/AT, PERRLA, EOMI, thinning hair Neck: Supple Lungs: CTAB Cardiovascular: RRR, Normal S1, Normal S2, with murmur Abdomen: soft, non-tender, globular, positive bowel sound Extremities: excoriation Neurological: no change Internal Medicine Assmt/Plan - Assessment Assessment: ASSESSMENT AND PLAN: Right hearing loss, 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 Continue angiotensin receptor iván. Continue Synthroid. Continue on aspirin. We will continue monitoring the patient closely. We will change the patient's diet to no concentrated sweets. skin care Nutritional Asmnt/Malnutr-PDOC - Dietary Evaluation Malnutrition Findings (Please click <Entered> for more info): Nutritional Asmnt/Malnutrition Start: 12/16/18 13: 14 Text: Status: Complete Freq: Protocol: Document 12/16/18 13:14 GEE (Rec: 12/16/18 13:20 GEE [email or web address]) Nutritional Asmnt/Malnutrition Patient General Information Nutritional Screening Moderate Risk Diagnosis PSYCHOSIS NOS Pertinent Medical Hx/Surgical Hx HTN, HYPOTHYROIDISM, CHF, CARDIAC ARRYTHMIA, STATUS POST PACEMAKER, DEMENTIA, BORDERLINE DIABETES Subjective Information PT IS A 88 YEAR OLD MALE ADMITTED ON 12/13 FROM HOME ADMITTED D/T PSYCHOSIS NOS, PARANOIA. HT: 510 WT: 177 LB (80.45 KG) BMI: 22.86 (NORMAL) GI: WNL,FLAT, SOFT, NON-TENDER BM: 7/1 X 2 I/O: 1500/NOT NOTED SKIN: WNL, INTACT, DRYNESS TONIO: 21 DIET ORDER: CCHO, NCS ESTIMATED ENERGY NEEDS: ( GERIATRIC, CBW) 2164-0315 KCALS (25-30 KCALS/ KG) 80-97 G PRO (1.0-1.2 G/KG) 9844-3698 ML (25-30 ML/KG) PT IS IN A VERY CONFUSED STATE , BUT DOES EAT WELL PER RN. PT PO INTAKE: 80% MEALS X 3 DAYS , PER MEAL/NUTRITION ACTIVITY RECORD. DIETARY IS CURRENTLY PROVIDING AN ESTIMATED 2300 KCALS AND 125 GM PRO. PER PT PO INTAKE, THIS IS PROVIDING AN ESTIMATED 1840 KCALS AND 100 GM PRO, TO MEET 91% KCAL AND 100% PRO NEEDS ADEQUATE. Current Diet Order/ Nutrition Support [facility] Pertinent Medications MAALOX (PRN), D50W, GLUTOSE 40 % (PRN), LASIX, GLUCAGON (PRN) , INS-SS, SYNTHROID, MOM (PRN) , THEREGRAN, KLOR-COM Pertinent Labs NO UPDATED LABS 12/14 WNL Nutritional Hx/Data Height 1.78 m Height (Calculated Centimeters) 177.8 Current Weight (lbs) 80.286 kg Weight (Calculated Kilograms) 80.3 Weight (Calculated Grams) 47872.8 [place] Body Weight 166 % [place] Body Weight 107 Body Mass Index (BMI) 25.4 Weight Status Approriate GI Symptoms GI Symptoms None Last BM 12/14 X 2 Skin Integrity/Comment: WNL, INTACT, DRYNESS Current %PO Good (75-100%) Estimated Nutritional Goals BEE in Kcals: Using Current wt Calories/Kcals/Kg 25-30 Kcals Calculated Protein: Using Current wt Protein g/k.0-1.2 Protein Calculated 80-97 Fluid: ml 7906-3648 ML (25-30 ML/KG) Nutritional Problem No current Nutrition Prob Problem NO NUTRITION DIAGNOSIS AT THIS TIME. Etiology N/A Signs/Symptoms: N/A Malnutrition Related to Morbid Obesity Malnutrition related to morbid obesity No Intervention/Recommendation Comments CONTINUE WITH [facility], [facility] DIET ORDERED. Expected Outcomes/Goals Expected Outcomes/Goals 1. PO INTAKE TO CONTINUE TO MEET > 75% OF NUTRITIONAL NEEDS. 2. MONITOR PO INTAKE, WT, NUTRITION RELATED LABS AND SKIN INTEGRITY. 3. F/U LOW RISK IN 7 DAYS, 12/23
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
== END 2018-12-29 15:15 | DRG 885 ==
LOC: GERO 14:05 → GERO2 12-26 19:00 → GERO 12-27
PROVIDERS: ADMIT Psychiatry & Neurology Psychiatry; ATTEND Psychiatry & Neurology Psychiatry
DX: F29 Unspecified psychosis not due to a substance or known physiological condition (principal); I11.0 Hypertensive heart disease with heart failure; F03.90 Unspecified dementia, unspecified severity, without behavioral disturbance, psychotic disturbance, mood disturbance, and anxiety; H91.91 Unspecified hearing loss, right ear; I50.9 Heart failure, unspecified; H54.8 Legal blindness, as defined in USA; F12.90 Cannabis use, unspecified, uncomplicated; F22 Delusional disorders; E11.9 Type 2 diabetes mellitus without complications; E03.9 Hypothyroidism, unspecified; F32.9 Major depressive disorder, single episode, unspecified; Z95.0 Presence of cardiac pacemaker; Z79.899 Other long term (current) drug therapy; Z88.2 Allergy status to sulfonamides
CPT/HCPCS: 36415-UA; 71045-TC; 80061-TC; 82948-90; 83036-90; 93005; Z7610